=== PATIENT | male | born 1945 | race Caucasian/White ===

== ENCOUNTER 2017-11-01 08:56 | Emergency (ER) | payer OTHER ==
[~2017-11-01] VITALS: Ht 175.3 cm; Wt 109.6 kg
[~2017-11-01 08:56] MED LIST: ALLO300T2 PO; ASPI81TA82 PO; ATENPOW10 PO; LOSA25TA31 PO
[2017-11-01 08:59] VITALS: BP 220/107; PULSE 83; RESP 16; TEMP 97.5; O2SAT 94
[2017-11-01] MEDS ORDERED: AMLO2.5T PO ×2 (09:08)
[2017-11-01] MEDS ORDERED: ASPI81TA23 PO ×2 (09:08)
[2017-11-01] MEDS ORDERED: ALLO300T2 PO ×2 (09:08)
[2017-11-01] MEDS ORDERED: LOSA25TA PO ×2 (09:08)
[2017-11-01] MEDS ORDERED: PHENYLEPHRINE HCL 0.5% NASAL SPRAY 15 ML BTL NASAL ONE (09:15)
[2017-11-01 09:16] VITALS: BP 168/71
--- NOTE | 2017-11-01 09:16 | PD ---
HPI Chief Complaint: Nosebleed Time Seen by Provider: 09:02 Travel History International Travel<30 days: No Contact w/Intl Traveler<30days: No Traveled to known affect area: No History of Present Illness HPI 72-year-old male presents emergency department for evaluation of a nose bleed started this morning. Patient states that he was at home watching television when he began to feel nauseous and went to the bathroom and vomited. States that his nose began bleeding at the time of this vomiting. Actually had some blood in his vomitus. Says that his nose bled for about 20 minutes prior to being controlled on its own. Denies any bleeding currently. Patient says he did not take his medication this morning which includes a high blood pressure medication. He does not take blood thinners. He denies history of bloody nose. Denies trauma or nasal pain. PFSH Past Medical History Hx Anticoagulant Therapy: No Cancer: No Cardiovascular Problems: No Diabetes: No Diminished Hearing: No Gout: Yes Hepatitis: No Hiatal Hernia: No Hypertension: Yes Respiratory: No Thyroid Disease: No Tetanus Vaccination: > 5 Years Influenza Vaccination: No PNEUMOCCOCAL Vaccine (Year): 2 Past Surgical History Eye Surgery: Yes (LEFT EYE CATARACT SX) Pacemaker: No Other Surgery: Yes Social History Alcohol Use: Yes (daily) Tobacco Use: No Substance Use: No Allergies-Medications (Allergen,Severity, Reaction): Coded Allergies: No Known Allergies (Verified Adverse Reaction, Unknown, 11/01/17) Reported Meds & Prescriptions Reported Meds & Active Scripts Active Reported Amlodipine (Amlodipine Besylate) 2.5 Mg Tab Unknown Dose PO DAILY Losartan (Losartan Potassium) 25 Mg Tab Unknown Dose PO DAILY Aspirin EC (Aspirin) 81 Mg Tabdr 81 Mg PO DAILY Allopurinol 300 Mg Tab 300 Mg PO DAILY Review of Systems Except as stated in HPI: all other systems reviewed are Neg Physical Exam Narrative GENERAL: Well-nourished, well-developed patient. SKIN: Focused skin assessment warm/dry. HEAD: Normocephalic. EYES: No scleral icterus. No injection or drainage. Right nostril-possible source from the anterior aspect. No active bleeding noted. Posterior pharynx with scant blood but no active bleeding noted. NECK: Supple, trachea midline. No JVD or lymphadenopathy. CARDIOVASCULAR: Regular rate and rhythm without murmurs, gallops, or rubs. RESPIRATORY: Breath sounds equal bilaterally. No accessory muscle use. GASTROINTESTINAL: Abdomen soft, non-tender, nondistended. MUSCULOSKELETAL: No cyanosis, or edema. BACK: Nontender without obvious deformity. No CVA tenderness. Data Data Last Documented VS Vital Signs Date Time Temp Pulse Resp B/P (MAP) Pulse Ox O2 Delivery O2 Flow Rate FiO2 11/01/17 09:32 11/01/17 08:59 97.5 83 16 94 Orders Orders Phenylephrine 0.5% Bobby Spr (Neosynephrin (11/01/17 09:15) MDM Medical Decision Making Medical Screen Exam Complete: Yes Emergency Medical Condition: Yes Differential Diagnosis Epistaxis, hematemesis, hemoptysis Narrative Course 72-year-old male presents emergency department evaluation of epistaxis. Denies any headache, visual changes, blurred vision. Blood pressure was found to be very elevated although patient did not take his medication this morning because he was feeling nauseous. Patient was able to control this bleeding prior to arrival with pressure. In order to avoid recurrence, applied Noah-Synephrine nasal spray to gauze and applied to the right nare for 5-10 minutes. Note that his blood pressure upon arrival was significantly elevated. After sitting and resting, his blood pressure decreased appropriately. Advised that he should follow-up with his primary care physician today if possible for evaluation. Return to emergency department for worsening or persistent symptoms. Consider follow-up with an research program internship for evaluation. Diagnosis Primary Impression: Epistaxis Referrals: Primary Care Physician Additional Instructions: Follow-up with primary care physician regarding a bloody nose. Follow-up with primary care regarding her blood pressure. If your nasal bleeding begins again, hold pressure for 10 minutes. Avoid blowing your nose Disposition: 01 DISCHARGE HOME Condition: Stable Nicki Reno Nov 01, 2017 09:16
== END 2017-11-01 09:32 | disposition home or self-care (01) ==
LOC: PHEFT 08:56
DX: R04.0 Epistaxis (principal); I10 Essential (primary) hypertension
CPT/HCPCS: 99281

== ENCOUNTER 2017-11-03 01:10 | Inpatient (IN) | payer OTHER, MEDICARE ==
[~2017-11-03] VITALS: Ht 172.7 cm; Wt 107.2 kg
[2017-11-03] VITALS (15 sets, daily range): BP systolic 140–244; BP diastolic 75–119; PULSE 67–113; RESP 16–20; TEMP 96–98.3; O2SAT 93–98
[~2017-11-03 01:10] MED LIST changes: +AMLO2.5T PO; +ASPI81TA23 PO; +LOSA25TA PO
[2017-11-03] MEDS ORDERED: PHENYLEPHRINE HCL 0.5% NASAL SPRAY 15 ML BTL NASAL ONE (01:45)
--- NOTE | 2017-11-03 02:31 | PD ---
HPI Chief Complaint: Nosebleed Time Seen by Provider: 01:35 Travel History International Travel<30 days: No Contact w/Intl Traveler<30days: No Traveled to known affect area: No History of Present Illness HPI The patient is a 72-year-old male that had a nosebleed that began yesterday. Apparently, they sprayed it with Noah-Synephrine and a quick bleeding. His nose was not packed except for some small gauze amount. The patient states that intermittently bleeds large amounts of blood. He came in because of the nosebleed which is mostly out of the right side of his nose. He is on 81 mg aspirin daily but takes no other blood thinner. He does have a history of hypertension. He sees his primary care physician on Wednesday. PFSH Past Medical History Hx Anticoagulant Therapy: No Cancer: No Cardiovascular Problems: No Diabetes: No Diminished Hearing: No Gout: Yes Hepatitis: No Hiatal Hernia: No Hypertension: Yes Respiratory: No Thyroid Disease: No Influenza Vaccination: No PNEUMOCCOCAL Vaccine (Year): 2 Past Surgical History Eye Surgery: Yes (LEFT EYE CATARACT SX) Pacemaker: No Other Surgery: Yes Social History Alcohol Use: Yes (daily) Tobacco Use: No Substance Use: No Allergies-Medications (Allergen,Severity, Reaction): Coded Allergies: No Known Allergies (Verified Adverse Reaction, Unknown, 11/03/17) Reported Meds & Prescriptions Reported Meds & Active Scripts Active Reported Amlodipine (Amlodipine Besylate) 2.5 Mg Tab Unknown Dose PO DAILY Losartan (Losartan Potassium) 25 Mg Tab Unknown Dose PO DAILY Aspirin EC (Aspirin) 81 Mg Tabdr 81 Mg PO DAILY Allopurinol 300 Mg Tab 300 Mg PO DAILY Review of Systems Except as stated in HPI: all other systems reviewed are Neg Physical Exam Narrative GENERAL: Well-nourished, well-developed, alert and oriented patient in no apparent distress other than anxiety and his nosebleed. His vital signs initially showed blood pressure 244/119 but, after rest, the blood pressure is 163/98. SKIN: Focused skin assessment warm/dry. No skin rash is present. HEAD: Normocephalic. EYES: No scleral icterus. No injection or drainage. NECK: Supple, trachea midline. No JVD or lymphadenopathy. CARDIOVASCULAR: Regular rate and rhythm without murmurs, gallops, or rubs. RESPIRATORY: Breath sounds equal bilaterally. No accessory muscle use. GASTROINTESTINAL: Abdomen soft, non-tender, nondistended. MUSCULOSKELETAL: No cyanosis, or edema. BACK: Nontender without obvious deformity. No CVA tenderness. ENT: The patient has a small amount of blood coursing down the posterior pharyngeal wall. Most of the blood is in the right nares, only minimal blood is in the left nares. Data Data Last Documented VS Vital Signs Date Time Temp Pulse Resp B/P (MAP) Pulse Ox O2 Delivery O2 Flow Rate FiO2 11/03/17 02:43 84 20 185/95 (125) 96 Room Air 11/03/17 01:15 97.4 Orders Orders Phenylephrine 0.5% Bobby Spr (Neosynephrin (11/03/17 01:45) Hydralazine Inj (Apresoline Inj) (11/03/17 02:45) MDM Medical Decision Making Medical Screen Exam Complete: Yes Emergency Medical Condition: Yes Medical Record Reviewed: Yes Differential Diagnosis Anterior epistaxis, posterior epistaxis, coagulopathy, hypertension Narrative Course It is now 0300 and the patient has only a minimal amount of mucousy blood coming out anteriorly. The amount of blood is less than a drop an hour. There is no blood coursing posteriorly. Diagnosis Primary Impression: Anterior epistaxis Additional Instructions: As we discussed, follow-up with your primary care physician on Wednesday who will remove the balloon packing. If you have any problems, please return to the emergency department. Med/Other Pt SpecificInfo: Prescription(s) given Scripts Amoxicillin (Amoxicillin) 875 Mg Tab 875 MG PO BID for Infection, #14 TAB 0 Refills Prov: Lionel Galvan MD 11/03/17 Disposition: 01 DISCHARGE HOME Condition: Stable Lionel Galvan MD Nov 03, 2017 02:31
[2017-11-03] MEDS ORDERED: hydrALAZINE HCL 20 MG/ML VIAL IV PUSH ONE (02:45)
[2017-11-03] MEDS ORDERED: AMOX875T PO (03:02)
[2017-11-03] MEDS ORDERED: AMOXICILLIN 875 MG TAB PO ONE (03:15)
[2017-11-03 04:11] LABS: AUTOMATED NEUTROPHIL # 5.3 TH/MM3 (1.8-7.7); BASOPHIL # 0.1 TH/MM3 (0-0.2); BASOPHIL % 0.8 % (0.0-2.0); EOSINOPHIL # 0.3 TH/MM3 (0-0.4); EOSINOPHIL % 3.4 % (0.0-4.0); HEMATOCRIT 49.2 % (39.0-51.0); HEMOGLOBIN 17.1 GM/DL (13.0-17.0); LYMPH % 22.5 % (9.0-44.0); LYMPHOCYTE # 1.9 TH/MM3 (1.0-4.8); MEAN CELL VOLUME 92.1 FL (80.0-100.0); MEAN CORPUSCULAR HEMOGLOBIN 32.1 PG (27.0-34.0); MEAN CORPUSCULAR HGB CONC 34.8 % (32.0-36.0); MEAN PLATELET VOLUME 10.7 FL (7.0-11.0); MONO % 9.8 % (0.0-8.0); MONOCYTE # 0.8 TH/MM3 (0-0.9); NEUT % 63.5 % (16.0-70.0); PLATELET COUNT 182 TH/MM3 (150-450); RED BLOOD COUNT 5.34 MIL/MM3 (4.50-5.90); RED CELL DISTRIBUTION WIDTH 13.8 % (11.6-17.2); WHITE BLOOD COUNT 8.4 TH/MM3 (4.0-11.0)
[2017-11-03 04:34] LABS: BICARBONATE 26.4 MEQ/L (21.0-32.0)
[2017-11-03 04:37] LABS: INTERNATIONAL NORMALIZED RATIO 1.1 RATIO; PROTHROMBIN TIME - PATIENT 11.2 SEC (9.8-11.6)
[2017-11-03 04:38] LABS: CREATININE 1.1 MG/DL (0.60-1.30)
[2017-11-03] MEDS ORDERED: SODIUM CHLOR 0.9% 1000 ML INJ 1,000 ML IV SCH (04:51)
[2017-11-03] MEDS ORDERED: NALOXONE HCL 0.4 MG/ML AMP IV PUSH PRN (05:00)
[2017-11-03] MEDS ORDERED: SODIUM CHLORIDE 0.9% FLUSH 10 ML FLUSH IV FLUSH PRN (05:00)
[2017-11-03] MEDS ORDERED: LACTULOSE SYRUP 20 GM/30 ML CUP PO PRN (05:00)
[2017-11-03] MEDS ORDERED: SENNOSIDES 8.6 MG TAB PO PRN (05:00)
[2017-11-03] MEDS ORDERED: BISACODYL 10 MG SUPP RECTAL PRN (05:00)
[2017-11-03] MEDS ORDERED: ONDANSETRON HCL 4 MG/2 ML VIAL IVP PRN (05:00)
[2017-11-03] MEDS ORDERED: MAGNESIUM HYDROXIDE SUSP 30 ML CUP PO PRN (05:00)
[2017-11-03] MEDS: DOCUSATE SODIUM 50 MG/SENNA 8.6 MG TAB PO SCH ×2 (07:48→21:51)
[2017-11-03] MEDS: cloNIDine HCL 0.1 MG TAB PO PRN ×3 (07:48→20:19)
[2017-11-03] MEDS: ACETAMINOPHEN 325 MG TAB PO PRN ×2 (07:49→14:22)
[2017-11-03] MEDS: SODIUM CHLORIDE 0.9% FLUSH 10 ML FLUSH IV FLUSH SCH ×2 (09:00→21:52)
--- NOTE | 2017-11-03 09:54 | HHI.HP ---
HPI Service [facility] Primary Care Physician Alban Youssef MD Admission Diagnosis Anterior epistaxis Diagnoses: Chief Complaint: Epistaxis Travel History International Travel<30 Days: No Contact w/Intl Traveler <30 Da: No Traveled to Known Affected Are: No History of Present Illness This is a 72-year-old male patient with a known medical history of hypertension and gout who presented to the ED with continued epistaxis. Apparently patient presented to the ED yesterday was given Noah-Synephrine spray and a quick bleeding which had resolved the nosebleed, patient's right nare was also packed with some small gauze. Patient states he went home and the bleeding had subsided but then around 1230 this morning while laying in bed he noticed a postnasal drip and continued bleeding from his right nare. Patient does admit to taking aspirin 81 mg daily. He also does admit that his software engineer advisor is put him on vitamin D which he had started on Wednesday and took a total of 3 doses of vitamin E the past 3 days. Patient does have a history of hypertension , states it has been adequately controlled with his current medication regimen. He is due to see his PCP, Dr. Youssef on Wednesday for follow-up. Denies any recent illness including fever, chills, cough, abdominal pain, nausea, vomiting , diarrhea dysuria. Review of Systems Constitutional: DENIES: Fever, Chills Endocrine: DENIES: Heat/cold intolerance Eyes: DENIES: Blurred vision, Diplopia Ears, nose, mouth, throat: COMPLAINS OF: Epistaxis, DENIES: Oral lesions, Throat pain, Ear Pain, Running Nose, Sinus Pain Respiratory: DENIES: Cough Cardiovascular: DENIES: Chest pain, Palpitations, Dyspnea on Exertion, Lower Extremity Edema Gastrointestinal: DENIES: Abdominal pain, Black stools, Bloody stools, Constipation, Diarrhea, Nausea, Vomiting Musculoskeletal: DENIES: Joint pain Hematologic/lymphatic: DENIES: Bruising Psychiatric: DENIES: Anxiety Except as stated in HPI: all other systems reviewed are Neg Past Family Social History Past Medical History Hypertension Gout Past Surgical History Left eye cataract surgery Right shoulder repair Reported Medications Active Amoxicillin 875 Mg Tab 875 Mg PO BID Reported Amlodipine (Amlodipine Besylate) 2.5 Mg Tab Unknown Dose PO DAILY Losartan (Losartan Potassium) 25 Mg Tab Unknown Dose PO DAILY Aspirin EC (Aspirin) 81 Mg Tabdr 81 Mg PO DAILY Allopurinol 300 Mg Tab 300 Mg PO DAILY Allergies: Coded Allergies: No Known Allergies (Verified Adverse Reaction, Unknown, 11/03/17) Active Ordered Medications Current Medications Medications (Trade) Dose Ordered Sig/Chiki Route Start Time Stop Time Status Last Admin Sodium Chloride 1,000 ml @ 100 mls/hr Q10H IV 11/03/17 04:51 11/03/17 05:02 (NS Flush) 2 ml UNSCH PRN IV FLUSH 11/03/17 05:00 (NS Flush) 2 ml BID IV FLUSH 11/03/17 09:00 (Tylenol) 650 mg Q4H PRN PO 11/03/17 05:00 11/03/17 07:49 (Zofran Inj) 4 mg Q6H PRN IVP 11/03/17 05:00 (Narcan Inj) 0.4 mg UNSCH PRN IV PUSH 11/03/17 05:00 (Kimber-Colace) 1 tab BID PO 11/03/17 09:00 11/03/17 07:48 (Milk Of Magnesia Liq) 30 ml Q12H PRN PO 11/03/17 05:00 (Senokot) 17.2 mg Q12H PRN PO 11/03/17 05:00 (Dulcolax Supp) 10 mg DAILY PRN RECTAL 11/03/17 05:00 (Lactulose Liq) 30 ml DAILY PRN PO 11/03/17 05:00 (Catapres) 0.1 mg Q6H PRN PO 11/03/17 05:00 11/03/17 07:48 Family History Brother had a history of MS, in his 40s. Father has a history of RI in his 70s. Social History Patient denies any tobacco abuse. Does admit to 2 glasses of wine/beer daily. Denies illicit drug use. Physical Exam Vital Signs Vital Signs Date Time Temp Pulse Resp B/P (MAP) Pulse Ox O2 Delivery O2 Flow Rate FiO2 11/03/17 08:00 96.8 94 18 187/96 (126) 96 11/03/17 06:10 11/03/17 05:00 108 16 144/89 (107) 95 Room Air 11/03/17 04:29 108 16 156/75 (102) 94 Aerosol Mask 11/03/17 03:50 113 18 217/118 (151) 95 Room Air 11/03/17 03:36 99 16 164/85 (111) 94 Room Air 11/03/17 03:12 98 16 163/81 (108) 95 Room Air 11/03/17 03:02 100 16 170/95 (120) 95 Room Air 11/03/17 02:43 84 20 185/95 (125) 96 Room Air 11/03/17 02:11 95 16 163/98 (119) 94 Room Air 11/03/17 01:39 84 16 195/97 (129) 93 Room Air 11/03/17 01:15 97.4 91 18 244/119 (160) 95 Physical Exam GENERAL: Well-developed, well-nourished patient in [place]. SKIN: Warm and dry. No rash. HEAD: Normocephalic. Atraumatic. EYES: Pupils equal and round. No scleral icterus. No injection or drainage. ENT: Right nare bleeding with packing in place. NECK: Supple. Trachea midline. CARDIOVASCULAR: Regular rate and rhythm. S1, S2 noted. No murmur appreciated. RESPIRATORY: No accessory muscle use. Clear to auscultation. Breath sounds equal bilaterally. GASTROINTESTINAL: Abdomen soft, non-tender, nondistended. Normoactive bowel sounds x4. MUSCULOSKELETAL: No obvious deformities. Extremities without clubbing, cyanosis , or edema. NEUROLOGICAL: Awake and alert. No obvious cranial nerve deficits. Motor grossly within normal limits. 5/5 muscle strength in bilateral upper and lower extremities. Normal speech. PSYCHIATRIC: Appropriate mood and affect; insight and judgment normal. Laboratory Laboratory Tests Test 11/03/17 03:57 11/03/17 04:20 White Blood Count 8.4 Red Blood Count 5.34 Hemoglobin 17.1 Hematocrit 49.2 Mean Corpuscular Volume 92.1 Mean Corpuscular Hemoglobin 32.1 Mean Corpuscular Hemoglobin Concent 34.8 Red Cell Distribution Width 13.8 Platelet Count 182 Mean Platelet Volume 10.7 Neutrophils (%) (Auto) 63.5 Lymphocytes (%) (Auto) 22.5 Monocytes (%) (Auto) 9.8 Eosinophils (%) (Auto) 3.4 Basophils (%) (Auto) 0.8 Neutrophils # (Auto) 5.3 Lymphocytes # (Auto) 1.9 Monocytes # (Auto) 0.8 Eosinophils # (Auto) 0.3 Basophils # (Auto) 0.1 CBC Comment DIFF FINAL Differential Comment Prothrombin Time 11.2 Prothromb Time International Ratio 1.1 Activated Partial Thromboplast Time 25.4 Blood Urea Nitrogen 29 Creatinine 1.10 Random Glucose 153 Calcium Level 9.0 Sodium Level 136 Potassium Level 4.3 Chloride Level 103 Carbon Dioxide Level 26.4 Anion Gap 7 Estimat Glomerular Filtration Rate 66 Result Diagram: 11/03/17 0357 11/03/17 0420 Septic Shock Reassessment Septic shock perfusion: reassessment completed Caprini VTE Risk Assessment Caprini VTE Risk Assessment: Mod/High Risk (score >= 2) Caprini Risk Assessment Model Point Value = 1 Point Value = 2 Point Value = 3 Point Value = 5 Age 41-60 Minor surgery BMI > 25 kg/m2 Swollen legs Varicose veins or History of unexplained or recurrent spontaneous Oral contraceptives or hormone replacement Sepsis (< 1 month) Serious lung disease, including pneumonia (< 1 month) Abnormal pulmonary function Acute myocardial infarction Congestive heart failure (< 1 month) History of inflammatory bowel disease Medical patient at bed rest Age 61-74 Arthroscopic surgery Major open surgery (> 45 min) Laparoscopic surgery (> 45 min) Malignancy Confined to bed (> 72 hours) Immobilizing plaster cast Central venous access Age >= 75 History of VTE Family history of VTE Factor V Leiden Prothrombin [id number] Lupus anticoagulant Anticardiolipin antibodies Elevated serum homocysteine Heparin-induced thrombocytopenia Other congenital or acquired thrombophilia Stroke (< 1 month) Elective arthroplasty Hip, pelvis, or leg fracture Acute spinal cord injury (< 1 month) Prophylaxis Regimen Total Risk Factor Score Risk Level Prophylaxis Regimen 0-1 Low Early ambulation 2 Moderate Order ONE of the following: *Sequential Compression Device (SCD) *Heparin 5000 units SQ BID 3-4 Higher Order ONE of the following medications: *Heparin 5000 units SQ TID *Enoxaparin/Lovenox 40 mg SQ daily (WT < 150 kg, CrCl > 30 mL/min) *Enoxaparin/Lovenox 30 mg SQ daily (WT < 150 kg, CrCl > 10-29 mL/min) *Enoxaparin/Lovenox 30 mg SQ BID (WT < 150 kg, CrCl > 30 mL/min) AND/OR *Sequential Compression Device (SCD) 5 or more Highest Order ONE of the following medications: *Heparin 5000 units SQ TID (Preferred with Epidurals) *Enoxaparin/Lovenox 40 mg SQ daily (WT < 150 kg, CrCl > 30 mL/min) *Enoxaparin/Lovenox 30 mg SQ daily (WT < 150 kg, CrCl > 10-29 mL/min) *Enoxaparin/Lovenox 30 mg SQ BID (WT < 150 kg, CrCl > 30 mL/min) AND *Sequential Compression Device (SCD) Assessment and Plan Problem List: (1) Anterior epistaxis ICD Code: R04.0 - Epistaxis Status: Acute Assessment and Plan This is a 72-year-old male patient with a known medical history of hypertension and gout who presented to the ED with continued epistaxis. Anterior epistaxis - Patient does take aspirin 81 mg PO daily. Also admits to taking Vitamin E x 3 days. - Was given Neosynephrine spray in ED. - Balloon packing and Merocel sponges placed in right nare. ENT consulted, Dr. Epps aware patient and will see him today. Will probably continue packing for 3 days. Appreciate input recommendations. - Continue Amoxicillin. - Supportive care. Hypertension, chronic: Continue tight blood pressure control, epistaxis may be secondary to uncontrolled hypertension. Clonidine available PRN. Monitor BP trends. DVT Prophylaxis: SCDs. Carri Almazan Nov 03, 2017 09:54
[2017-11-03] MEDS ORDERED: amLODIPine BESYLATE 5 MG TAB PO SCH (10:15)
[2017-11-03] MEDS ORDERED: LOSARTAN 25 MG TAB PO SCH (10:15)
[2017-11-03 10:23] LABS: HEMATOCRIT 47.6 % (39.0-51.0); HEMOGLOBIN 16.2 GM/DL (13.0-17.0)
[2017-11-03] MEDS ORDERED: PILL SPLITTER OTHER PRN (10:30)
--- NOTE | 2017-11-03 14:09 | PD.CONS ---
History of Present Illness Service ENT Consult Requested By ED Reason for Consult Right epistaxis Primary Care Physician Alban Youssef MD Diagnoses: History of Present Illness 72 year old male, hypertensive had right nosebleed Wednesday. Initially was seen with resolution but returned with more serious bleed and significant increase in blood pressure. Required double right Merocel pack for control. His baby aspirin has been stopped. He is still hypertensive. There is no active bleed. Review of Systems Ears, nose, mouth, throat: COMPLAINS OF: Nasal discharge, Epistaxis, DENIES: Oral lesions, Hoarseness, Sinus Pain Past Family Social History Allergies: Coded Allergies: No Known Allergies (Verified Adverse Reaction, Unknown, 11/03/17) Physical Exam Vital Signs Vital Signs Date Time Temp Pulse Resp B/P (MAP) Pulse Ox O2 Delivery O2 Flow Rate FiO2 11/03/17 12:00 97.4 82 18 194/92 (126) 96 11/03/17 08:49 20 11/03/17 08:00 96.8 94 18 187/96 (126) 96 11/03/17 06:10 11/03/17 05:00 108 16 144/89 (107) 95 Room Air 11/03/17 04:29 108 16 156/75 (102) 94 Aerosol Mask 11/03/17 03:50 113 18 217/118 (151) 95 Room Air 11/03/17 03:36 99 16 164/85 (111) 94 Room Air 11/03/17 03:12 98 16 163/81 (108) 95 Room Air 11/03/17 03:02 100 16 170/95 (120) 95 Room Air 11/03/17 02:43 84 20 185/95 (125) 96 Room Air 11/03/17 02:11 95 16 163/98 (119) 94 Room Air 11/03/17 01:39 84 16 195/97 (129) 93 Room Air 11/03/17 01:15 97.4 91 18 244/119 (160) 95 Physical Exam GENERAL: This is a well-nourished, well-developed patient, in no apparent distress. SKIN: No rashes, ecchymoses or lesions. Cool and dry. HEAD: Atraumatic. Normocephalic. No temporal or scalp tenderness. EYES: Pupils equal round and reactive. Extraocular motions intact. No scleral icterus. No injection or drainage. ENT: Nose without active bleeding, right nasal pack in place. Throat without erythema, tonsillar hypertrophy or exudate. Uvula midline. Airway patent. NECK: Trachea midline. No JVD or lymphadenopathy. Supple, nontender, no meningeal signs. NEUROLOGICAL: Awake and alert. Normal speech. Laboratory Laboratory Tests Test 11/03/17 03:57 11/03/17 04:20 11/03/17 10:00 White Blood Count 8.4 Red Blood Count 5.34 Hemoglobin 17.1 16.2 Hematocrit 49.2 47.6 Mean Corpuscular Volume 92.1 Mean Corpuscular Hemoglobin 32.1 Mean Corpuscular Hemoglobin Concent 34.8 Red Cell Distribution Width 13.8 Platelet Count 182 Mean Platelet Volume 10.7 Neutrophils (%) (Auto) 63.5 Lymphocytes (%) (Auto) 22.5 Monocytes (%) (Auto) 9.8 Eosinophils (%) (Auto) 3.4 Basophils (%) (Auto) 0.8 Neutrophils # (Auto) 5.3 Lymphocytes # (Auto) 1.9 Monocytes # (Auto) 0.8 Eosinophils # (Auto) 0.3 Basophils # (Auto) 0.1 CBC Comment DIFF FINAL Differential Comment Prothrombin Time 11.2 Prothromb Time International Ratio 1.1 Activated Partial Thromboplast Time 25.4 Blood Urea Nitrogen 29 Creatinine 1.10 Random Glucose 153 Calcium Level 9.0 Sodium Level 136 Potassium Level 4.3 Chloride Level 103 Carbon Dioxide Level 26.4 Anion Gap 7 Estimat Glomerular Filtration Rate 66 Result Diagram: 11/03/17 1000 11/03/17 0420 Assessment and Plan Assessment and Plan 72 year old male hypertensive, epistaxis. Need to control hypertension. SBP still over 190. Will need right pack until Wednesday. Can D/C here or if discharged can be seen in our [place] office. Would hold baby aspirin for now. OK to feed per ENT. Needs to be on antibiotics. Merrick Epsp MD Nov 03, 2017 14:09
[2017-11-03] MEDS: ENALAPRILAT 1.25 MG/ML VIAL IV PUSH PRN (16:23)
[2017-11-03] MEDS ORDERED: ATEN100T PO ×2 (18:58)
[2017-11-03] MEDS: AMOXICILLIN 875 MG TAB PO SCH (21:51)
[2017-11-04 04:00] VITALS: BP 138/67; PULSE 71; RESP 20; TEMP 96.3; O2SAT 95
[2017-11-04 05:56] LABS: AUTOMATED NEUTROPHIL # 5.7 TH/MM3 (1.8-7.7); BASOPHIL # 0.1 TH/MM3 (0-0.2); BASOPHIL % 0.9 % (0.0-2.0); EOSINOPHIL # 0.2 TH/MM3 (0-0.4); EOSINOPHIL % 2.8 % (0.0-4.0); HEMATOCRIT 44.4 % (39.0-51.0); HEMOGLOBIN 14.5 GM/DL (13.0-17.0); LYMPH % 14.4 % (9.0-44.0); LYMPHOCYTE # 1.1 TH/MM3 (1.0-4.8); MEAN CELL VOLUME 91.9 FL (80.0-100.0); MEAN CORPUSCULAR HEMOGLOBIN 29.9 PG (27.0-34.0); MEAN CORPUSCULAR HGB CONC 32.6 % (32.0-36.0); MONO % 7.2 % (0.0-8.0); MONOCYTE # 0.5 TH/MM3 (0-0.9); NEUT % 74.7 % (16.0-70.0); PLATELET COUNT 163 TH/MM3 (150-450); RED BLOOD COUNT 4.84 MIL/MM3 (4.50-5.90); RED CELL DISTRIBUTION WIDTH 13.2 % (11.6-17.2); WHITE BLOOD COUNT 7.6 TH/MM3 (4.0-11.0)
[2017-11-04 06:08] LABS: BICARBONATE 29.7 MEQ/L (21.0-32.0); CALCIUM 8.8 MG/DL (8.5-10.1)
[2017-11-04 08:00] VITALS: BP 145/77; PULSE 91; RESP 18; TEMP 98; O2SAT 96
[2017-11-04] MEDS: DOCUSATE SODIUM 50 MG/SENNA 8.6 MG TAB PO SCH ×2 (08:02→20:14)
[2017-11-04] MEDS: SODIUM CHLORIDE 0.9% FLUSH 10 ML FLUSH IV FLUSH SCH ×2 (08:03→20:18)
[2017-11-04] MEDS: AMOXICILLIN 875 MG TAB PO SCH ×2 (08:12→20:18)
[2017-11-04] MEDS ORDERED: LOSARTAN 25 MG TAB PO SCH (09:00)
[2017-11-04] MEDS ORDERED: amLODIPine BESYLATE 5 MG TAB PO SCH (09:00)
[2017-11-04] MEDS ORDERED: ALLOPURINOL 300 MG TAB PO SCH (09:00)
--- NOTE | 2017-11-04 09:36 | HHI.PR ---
Subjective Remarks Follow up epistaxis. Patient seen and examined, sitting on side of bed comfortably in no apparent distress. Packing present in right nare, minimal bleeding. Some reports of bleeding from left nare overnight. BP more controlled , home medications updated. Patient denies any pain, chest pain or nausea, vomiting. VSS. Afebrile. Patient states he feels more comfortable staying overnight to monitor bleeding, packing will be removed tomorrow. Objective Vitals Vital Signs Date Time Temp Pulse Resp B/P (MAP) Pulse Ox O2 Delivery O2 Flow Rate FiO2 11/04/17 04:00 96.3 71 20 138/67 (90) 95 Manual Cuff/Auscultation 11/03/17 23:11 98.3 67 18 140/82 (101) 95 11/03/17 20:00 96.0 87 20 160/100 (120) 98 Automatic Cuff 11/03/17 16:00 97.7 69 18 143/86 (105) 96 11/03/17 15:22 20 11/03/17 12:00 97.4 82 18 194/92 (126) 96 I/O 11/03/17 11/03/17 11/03/17 11/04/17 11/04/17 11/04/17 07:00 15:00 23:00 07:00 15:00 23:00 Intake Total 1320 ml Balance 1320 ml Intake Oral 1320 ml # Voids 4 # Bowel Movements 0 Result Diagram: 11/04/17 0535 11/04/17 0535 Objective Remarks GENERAL: Well-developed, well-nourished patient in [facility]. SKIN: Warm and dry. No rash. HEAD: Normocephalic. Atraumatic. EYES: Pupils equal and round. No scleral icterus. No injection or drainage. ENT: Right nare bleeding with packing in place. NECK: Supple. Trachea midline. CARDIOVASCULAR: Regular rate and rhythm. S1, S2 noted. No murmur appreciated. RESPIRATORY: No accessory muscle use. Clear to auscultation. Breath sounds equal bilaterally. GASTROINTESTINAL: Abdomen soft, non-tender, nondistended. Normoactive bowel sounds x4. MUSCULOSKELETAL: No obvious deformities. Extremities without clubbing, cyanosis , or edema. NEUROLOGICAL: Awake and alert. No obvious cranial nerve deficits. Motor grossly within normal limits. 5/5 muscle strength in bilateral upper and lower extremities. Normal speech. PSYCHIATRIC: Appropriate mood and affect; insight and judgment normal. A/P Problem List: (1) Anterior epistaxis ICD Code: R04.0 - Epistaxis Status: Acute Assessment and Plan This is a 72-year-old male patient with a known medical history of hypertension and gout who presented to the ED with continued epistaxis. Anterior epistaxis - Patient does take aspirin 81 mg PO daily. Also admits to taking Vitamin E x 3 days. Placed on hold. - Was given Neosynephrine spray in ED. - Balloon packing and Merocel sponges placed in right nare. ENT consulted, Dr. Epps aware with current recommendations. Remove packing tomorrow. - Continue Amoxicillin. - Supportive care. Hypertension, chronic: Continue tight blood pressure control, epistaxis may be secondary to uncontrolled hypertension. Updated home med rec. BP more controlled. DVT Prophylaxis: SCDs. Carri Almazan Nov 04, 2017 09:36
[2017-11-04] MEDS ORDERED: ATENOLOL 50 MG TAB PO ONE (10:00)
[2017-11-04] MEDS ORDERED: ALLOPURINOL 100 MG TAB PO ONE (10:00)
[2017-11-04] MEDS ORDERED: LOSARTAN 50 MG TAB PO ONE (10:00)
[2017-11-04 12:00] VITALS: BP 145/85; PULSE 74; RESP 18; TEMP 97.3; O2SAT 95
[2017-11-04 16:00] VITALS: BP 187/90; PULSE 91; RESP 18; TEMP 98; O2SAT 95
[2017-11-04 20:00] VITALS: BP_SYST 142; BP_SYST 213; BP_DIAS 120; BP_DIAS 86; PULSE 88; RESP 22; TEMP 98; O2SAT 98
[2017-11-04] MEDS: ENALAPRILAT 1.25 MG/ML VIAL IV PUSH PRN (20:20)
[2017-11-05] VITALS (8 sets, daily range): BP systolic 128–180; BP diastolic 64–98; PULSE 70–80; RESP 18–22; TEMP 95.8–97.4; O2SAT 96–99
[2017-11-05] MEDS: ENALAPRILAT 1.25 MG/ML VIAL IV PUSH PRN (03:32)
[2017-11-05] MEDS ORDERED: ATENOLOL 50 MG TAB PO SCH (09:00)
[2017-11-05] MEDS: SODIUM CHLORIDE 0.9% FLUSH 10 ML FLUSH IV FLUSH SCH ×2 (09:00→20:23)
[2017-11-05] MEDS: LOSARTAN 50 MG TAB PO SCH (09:30)
[2017-11-05] MEDS: DOCUSATE SODIUM 50 MG/SENNA 8.6 MG TAB PO SCH ×2 (09:30→20:23)
[2017-11-05] MEDS: ALLOPURINOL 100 MG TAB PO SCH (09:30)
[2017-11-05] MEDS: AMOXICILLIN 875 MG TAB PO SCH ×2 (09:38→20:23)
[2017-11-05] MEDS ORDERED: amLODIPine BESYLATE 5 MG TAB PO ONE (11:00)
[2017-11-05] MEDS ORDERED: hydrALAZINE HCL 10 MG TAB PO ONE (11:00)
--- NOTE | 2017-11-05 13:07 | HHI.PR ---
Subjective Remarks Follow-up epistaxis and uncontrolled hypertension. Patient seen and examined, lying in bed. States that he had an episode of uncontrolled hypertension overnight, IV Vasotec as needed was given with minimal resolution of blood pressure. Blood pressure continues to be in the 160s systolic. Have started him on amlodipine and hydralazine. Change atenolol to carvedilol. We will continue to monitor. Patient did have some left nare bleeding overnight as well. Spoke to ENT Dr. Epps, will continue to follow and keep packing in until blood pressure more controlled. Objective Vitals Vital Signs Date Time Temp Pulse Resp B/P (MAP) Pulse Ox O2 Delivery O2 Flow Rate FiO2 11/05/17 12:00 96.8 72 20 165/97 (119) 99 11/05/17 08:00 96.9 80 20 160/92 (114) 96 11/05/17 04:20 158/98 (118) 11/05/17 03:30 180/82 (114) 11/05/17 00:00 96.4 70 22 169/81 (110) 98 11/04/17 20:00 98.0 88 22 142/86 (104) 98 11/04/17 20:00 213/120 (151) 11/04/17 16:00 98.0 91 18 187/90 (122) 95 I/O 11/04/17 11/04/17 11/04/17 11/05/17 11/05/17 11/05/17 07:00 15:00 23:00 07:00 15:00 23:00 Intake Total 1320 ml 1020 ml Balance 1320 ml 1020 ml Intake Oral 1320 ml 1020 ml # Voids 4 3 # Bowel Movements 0 0 Result Diagram: 11/04/17 0535 11/04/17 0535 Objective Remarks GENERAL: Well-developed, well-nourished patient in [place]. SKIN: Warm and dry. No rash. HEAD: Normocephalic. Atraumatic. EYES: Pupils equal and round. No scleral icterus. No injection or drainage. ENT: Right nare bleeding with packing in place. NECK: Supple. Trachea midline. CARDIOVASCULAR: Regular rate and rhythm. S1, S2 noted. No murmur appreciated. RESPIRATORY: No accessory muscle use. Clear to auscultation. Breath sounds equal bilaterally. GASTROINTESTINAL: Abdomen soft, non-tender, nondistended. Normoactive bowel sounds x4. MUSCULOSKELETAL: No obvious deformities. Extremities without clubbing, cyanosis , or edema. NEUROLOGICAL: Awake and alert. No obvious cranial nerve deficits. Motor grossly within normal limits. 5/5 muscle strength in bilateral upper and lower extremities. Normal speech. PSYCHIATRIC: Appropriate mood and affect; insight and judgment normal. A/P Problem List: (1) Anterior epistaxis ICD Code: R04.0 - Epistaxis Status: Acute Assessment and Plan This is a 72-year-old male patient with a known medical history of hypertension and gout who presented to the ED with continued epistaxis. Anterior epistaxis - Patient does take aspirin 81 mg PO daily. Also admits to taking Vitamin E x 3 days. Placed on hold. - Was given Neosynephrine spray in ED. - Balloon packing and Merocel sponges placed in right nare. ENT consulted, Dr. Epps aware with current recommendations. Seen patient this morning, patient still with uncontrolled hypertension. Will keep packing in until more controlled. Continue to follow.. - Continue Amoxicillin. - Supportive care. Tolerated hypertension History of hypertension - Continue tight blood pressure control, epistaxis suspect secondary to uncontrolled hypertension. - Patient on hydralazine 12.5 mg twice daily, added Norvasc 5 mg daily, change home atenolol to carvedilol - this may produce better results. Continue home losartan. Vasotec IV as needed per parameters. DVT Prophylaxis: SCDs. Carri Almazan Nov 05, 2017 13:07
--- NOTE | 2017-11-05 13:13 | HHI.PR ---
Subjective Remarks Had one episode of bleeding last night. Stopped spontaneously. No active bleed currently. Packing in just over 2 days. Objective Vital Signs Date Time Temp Pulse Resp B/P (MAP) Pulse Ox O2 Delivery O2 Flow Rate FiO2 11/05/17 12:00 96.8 72 20 165/97 (119) 99 11/05/17 08:00 96.9 80 20 160/92 (114) 96 11/05/17 04:20 158/98 (118) 11/05/17 03:30 180/82 (114) 11/05/17 00:00 96.4 70 22 169/81 (110) 98 11/04/17 20:00 98.0 88 22 142/86 (104) 98 11/04/17 20:00 213/120 (151) 11/04/17 16:00 98.0 91 18 187/90 (122) 95 I/O 11/04/17 11/04/17 11/04/17 11/05/17 11/05/17 11/05/17 07:00 15:00 23:00 07:00 15:00 23:00 Intake Total 1320 ml 1020 ml Balance 1320 ml 1020 ml Intake Oral 1320 ml 1020 ml # Voids 4 3 # Bowel Movements 0 0 Result Diagram: 11/04/17 0535 11/04/17 0535 Assessment and Plan Assessment and Plan 72 year old male hypertensive, epistaxis. On amoxil. had a secondary bleed last night. HTN still not controlled. Will need pacing likely 3 to 4 days. Will re- evaluate tomorrow. Merrick Epps MD Nov 05, 2017 13:13
[2017-11-05] MEDS: CARVEDILOL 12.5 MG TAB PO SCH ×2 (13:32→20:23)
[2017-11-05] MEDS: hydrALAZINE HCL 25 MG TAB PO SCH ×2 (13:32→22:31)
[2017-11-05 14:20] LABS: HEMATOCRIT 44.8 % (39.0-51.0); HEMOGLOBIN 14.4 GM/DL (13.0-17.0)
[2017-11-06] VITALS: BP 145/80; PULSE 77; RESP 20; TEMP 96.1; O2SAT 97
[2017-11-06] MEDS: hydrALAZINE HCL 25 MG TAB PO SCH (06:01)
[2017-11-06 08:00] VITALS: BP 153/84; PULSE 74; RESP 18; TEMP 97.7; O2SAT 93
[2017-11-06] MEDS: ALLOPURINOL 100 MG TAB PO SCH (08:03)
[2017-11-06] MEDS: SODIUM CHLORIDE 0.9% FLUSH 10 ML FLUSH IV FLUSH SCH (08:03)
[2017-11-06] MEDS: CARVEDILOL 12.5 MG TAB PO SCH (08:04)
[2017-11-06] MEDS: LOSARTAN 50 MG TAB PO SCH (08:04)
[2017-11-06] MEDS: AMOXICILLIN 875 MG TAB PO SCH (08:04)
[2017-11-06] MEDS: DOCUSATE SODIUM 50 MG/SENNA 8.6 MG TAB PO SCH (08:05)
--- NOTE | 2017-11-06 08:51 | HHI.PR ---
Subjective Remarks No further bleeding. Blood pressure much better controlled. Objective Nasal packs removed with no active bleed. Vital Signs Date Time Temp Pulse Resp B/P (MAP) Pulse Ox O2 Delivery O2 Flow Rate FiO2 11/06/17 00:00 96.1 77 20 145/80 (101) 97 11/05/17 20:00 95.8 78 18 137/83 (101) 96 11/05/17 16:00 97.4 76 20 147/80 (102) 98 11/05/17 14:45 128/64 (85) 11/05/17 12:00 96.8 72 20 165/97 (119) 99 I/O 11/05/17 11/05/17 11/05/17 11/06/17 11/06/17 11/06/17 07:00 15:00 23:00 07:00 15:00 23:00 Intake Total 550 ml 0 ml Balance 550 ml 0 ml Intake Oral 550 ml 0 ml # Voids 8 2 # Bowel Movements 0 Result Diagram: 11/05/17 1350 11/04/17 0535 Assessment and Plan Assessment and Plan 72 year old male hypertensive, epistaxis. Packing D/C'd, no bleed. Blood pressure better. OK to send home. Will see Wednesday in PO office. Merrick Epps MD Nov 06, 2017 08:51
[2017-11-06] MEDS ORDERED: amLODIPine BESYLATE 5 MG TAB PO SCH (09:00)
[2017-11-06] MEDS ORDERED: AMOX875T PO (09:09)
[2017-11-06] MEDS ORDERED: HYDR-3799 PO (09:09)
[2017-11-06] MEDS ORDERED: CARV12.5 PO (09:09)
--- NOTE | 2017-11-06 09:09 | HHI.DS ---
Discharge Summary Admission Date Nov 05, 2017 at 13:13 Discharge Date: Nov 06, 2017 Admitting Diagnosis Anterior epistaxis (1) Anterior epistaxis ICD Code: R04.0 - Epistaxis Status: Acute Procedures Please see below Brief History - From Admission This is a 72-year-old male patient with a known medical history of hypertension and gout who presented to the ED with continued epistaxis. Apparently patient presented to the ED yesterday was given Noah-Synephrine spray and a quick bleeding which had resolved the nosebleed, patient's right nare was also packed with some small gauze. Patient states he went home and the bleeding had subsided but then around 1230 this morning while laying in bed he noticed a postnasal drip and continued bleeding from his right nare. Patient does admit to taking aspirin 81 mg daily. He also does admit that his congregational care pastor is put him on vitamin D which he had started on Wednesday and took a total of 3 doses of vitamin E the past 3 days. Patient does have a history of hypertension , states it has been adequately controlled with his current medication regimen. He is due to see his PCP, Dr. Youssef on Wednesday for follow-up. Denies any recent illness including fever, chills, cough, abdominal pain, nausea, vomiting , diarrhea dysuria. CBC/BMP: 11/05/17 1350 11/04/17 0535 Significant Findings Laboratory Tests Test 11/03/17 10:00 11/04/17 05:35 11/05/17 13:50 Neutrophils (%) (Auto) 74.7 % (16.0-70.0) Blood Urea Nitrogen 27 MG/DL (7-18) Random Glucose 113 MG/DL (74-106) Estimat Glomerular Filtration Rate 73 ML/MIN (>89) PE at Discharge GENERAL: Well-developed, well-nourished patient in [facility]. SKIN: Warm and dry. No rash. HEAD: Normocephalic. Atraumatic. EYES: Pupils equal and round. No scleral icterus. No injection or drainage. ENT: Right nare bleeding with packing in place. NECK: Supple. Trachea midline. CARDIOVASCULAR: Regular rate and rhythm. S1, S2 noted. No murmur appreciated. RESPIRATORY: No accessory muscle use. Clear to auscultation. Breath sounds equal bilaterally. GASTROINTESTINAL: Abdomen soft, non-tender, nondistended. Normoactive bowel sounds x4. MUSCULOSKELETAL: No obvious deformities. Extremities without clubbing, cyanosis , or edema. NEUROLOGICAL: Awake and alert. No obvious cranial nerve deficits. Motor grossly within normal limits. 5/5 muscle strength in bilateral upper and lower extremities. Normal speech. PSYCHIATRIC: Appropriate mood and affect; insight and judgment normal. Pt update on day of discharge Follow up epistaxis. Patient seen and examined, sitting on side of bed comfortably. Dr. Epps in to see patient today, packing removed from right nare. Bleeding controlled. BP more controlled on current regimen. Will DC today , follow up ENT and PCP. VSS. Afebrile. Ambulating well. Eating well. No further complaints. Hospital Course This is a 72-year-old male patient with a known medical history of hypertension and gout who presented to the ED with continued epistaxis. Patient with right nare epistaxis. Patient does take aspirin 81 mg PO daily. Also admits to taking Vitamin E x 3 days. Placed on hold. Was given Neosynephrine spray in ED. Balloon packing and Merocel sponges placed in right nare. ENT consulted, Dr. Epps saw patient during hospitalization. Amoxicillin started. Packing removed day of discharge. Patient with accelerated hypertension which was status suspected reason for epistaxis, started on hydralazine, changed atenolol to carvedilol, continued home losartan. Vasotec IV was used as needed during hospitalization. Several episodes of elevated hypertension during hospitalization. Upon discharge blood pressure was stabilized and patient encouraged to follow-up with ENT and PCP. Return to ED if symptoms worsen. Pt Condition on Discharge: Stable Discharge Disposition: Discharge Home Discharge Time: > 30 minutes Discharge Instructions DIET: Follow Instructions for: As Tolerated, No Restrictions Speech Therapy-Diet Recommends: Regular Activities you can perform: Regular-No Restrictions Follow up Referrals: Appointment for Follow Up Ear Nose Throat - 2-[address] EPPS PCP Follow-up - 1 Week PCP Follow-up New Medications: Blood Pressure Kit/Arm Cuff (Blood Pressure Kit/Arm Cuff) 1 Mis Mis EA .XX DIRECTED for Blood Pressure Management, #1 0 Refills Carvedilol (Coreg) 12.5 Mg Tab 12.5 MG PO Q12HR for hypertension for 90 Days, #180 TAB Hydralazine HCl (Hydralazine HCl) 25 Mg Tablet 25 MG PO Q8HR for hypertension for 90 Days, #270 TAB Continued Medications: Allopurinol (Allopurinol) 300 Mg Tab 100 MG PO DAILY for Gout, #30 TAB 0 Refills Amoxicillin (Amoxicillin) 875 Mg Tab 875 MG PO BID for Infection for 11 Days, #22 TAB 0 Refills (This prescription has been renewed) Aspirin DR (Aspirin EC) 81 Mg Tabdr 81 MG PO DAILY, TAB 0 Refills Losartan (Losartan) 25 Mg Tab 100 PO DAILY for Blood Pressure Management, #15 TAB 0 Refills Discontinued Medications: Amlodipine (Amlodipine) 2.5 Mg Tab Unknown Dose PO DAILY for Blood Pressure Management, #30 TAB 0 Refills Atenolol (Atenolol) 100 Mg Tab 100 MG PO DAILY for Blood Pressure Management, #30 TAB 0 Refills Carri Almazan Nov 06, 2017 09:09
--- NOTE | 2017-11-06 09:10 | HHI.DCPOC ---
Discharge Care Plan Diagnosis: (1) Anterior epistaxis Goals to Promote Your Health * To prevent worsening of your condition and complications * To maintain your health at the optimal level Directions to Meet Your Goals Take your medications as prescribed Follow your dietary instruction Follow activity as directed Keep your appointments as scheduled Take your immunizations and boosters as scheduled If your symptoms worsen call your PCP, if no PCP go to Urgent Care Center or Emergency Room Smoking is Dangerous to Your Health. Avoid second hand smoke Call the 24-hour hour crisis hotline for domestic abuse at Carri Almazan Nov 06, 2017 09:10
[2017-11-06] MEDS ORDERED: BLOOD PRESSURE1 M20 (09:12)
== END 2017-11-06 11:00 | disposition home or self-care (01) | DRG 151 ==
LOC: PHED 01:10 → PHEDA 05:01 → PH3A 06:03 → OBSVTOIN 11-05 13:13
PROVIDERS: ADMIT Hospitalist; ATTEND Hospitalist
DX: R04.0 Epistaxis (principal); I10 Essential (primary) hypertension; M10.9 Gout, unspecified; Z79.82 Long term (current) use of aspirin; Z79.899 Other long term (current) drug therapy
CPT/HCPCS: 80048; 85014; 85018; 85025; 85610; 85730; 96376; G0378; J0360; J7030

== ENCOUNTER 2017-11-13 18:39 | Observation (INO) | payer MEDICARE, OTHER ==
[~2017-11-13] VITALS: Ht 175.3 cm; Wt 105.3 kg
[2017-11-13] VITALS (7 sets, daily range): BP systolic 149–250; BP diastolic 77–117; PULSE 82–85; RESP 16–18; TEMP 97.7; O2SAT 95–98
[~2017-11-13 18:39] MED LIST changes: -AMLO2.5T PO; +AMOX875T PO; -ASPI81TA82 PO; -ATENPOW10 PO; +BLOOD PRESSURE1 M20; +CARV12.5 PO; +HYDR-3799 PO; -LOSA25TA31 PO
[2017-11-13] MEDS ORDERED: SODIUM CHLORIDE 0.9% FLUSH 10 ML FLUSH IVF PRN (19:00)
[2017-11-13 19:38] LABS: AUTOMATED NEUTROPHIL # 5.7 TH/MM3 (1.8-7.7); BASOPHIL # 0.3 TH/MM3 (0-0.2); BASOPHIL % 3.8 % (0.0-2.0); EOSINOPHIL # 0.3 TH/MM3 (0-0.4); EOSINOPHIL % 3.5 % (0.0-4.0); HEMATOCRIT 44.4 % (39.0-51.0); HEMOGLOBIN 15.1 GM/DL (13.0-17.0); LYMPH % 18.1 % (9.0-44.0); LYMPHOCYTE # 1.6 TH/MM3 (1.0-4.8); MEAN CELL VOLUME 92.6 FL (80.0-100.0); MEAN CORPUSCULAR HEMOGLOBIN 31.6 PG (27.0-34.0); MEAN CORPUSCULAR HGB CONC 34.1 % (32.0-36.0); MEAN PLATELET VOLUME 10.2 FL (7.0-11.0); MONO % 8.4 % (0.0-8.0); MONOCYTE # 0.7 TH/MM3 (0-0.9); NEUT % 66.2 % (16.0-70.0); PLATELET COUNT 246 TH/MM3 (150-450); RED BLOOD COUNT 4.79 MIL/MM3 (4.50-5.90); RED CELL DISTRIBUTION WIDTH 13.2 % (11.6-17.2); WHITE BLOOD COUNT 8.6 TH/MM3 (4.0-11.0)
--- NOTE | 2017-11-13 19:40 | PD ---
HPI Chief Complaint: Hypertension Time Seen by Provider: 18:53 Travel History International Travel<30 days: No Contact w/Intl Traveler<30days: No Traveled to known affect area: No History of Present Illness HPI Patient is a 72-year-old male with history of hypertension and gout, presents the emergency room for evaluation of hypertension. Patient reports that he was recently admitted to the hospital on November 05, 2017 as his blood pressure was so high, he had persistent anterior epistasis. Patient was discharged on carvedilol 12.5 mg twice daily, hydralazine 25 mg every 8 hours, losartan 100 mg daily, amlodipine as well as atenolol were discontinued. Patient reports that he has been taking his blood pressure with his blood pressure cuff at home , reports that it is persistently high. Reports that tonight, his systolic blood pressures were over 190. Patient denies any headache or dizziness, denies any chest pain or shortness of breath, patient concerned that he is unable to control his blood pressure. Patient did see his primary care doctor yesterday, he was told to increase his dose of hydralazine to 50 mg every 8 hours. Patient reports that this is not working. Patient denies any headache, denies any vision changes, denies any dizziness, denies any nausea or vomiting this time. PFSH Past Medical History Hx Anticoagulant Therapy: No Arthritis: Yes Anxiety: No Depression: No Cancer: No Cardiovascular Problems: Yes Diabetes: No Diminished Hearing: No Endocrine: No Gout: Yes Genitourinary: No Hepatitis: No Hiatal Hernia: No Hypertension: Yes Immune Disorder: No Musculoskeletal: Yes Neurologic: No Psychiatric: No Reproductive: No Respiratory: Yes Thyroid Disease: No PNEUMOCCOCAL Vaccine (Year): 2 ?: Not Past Surgical History Eye Surgery: Yes (CATARACT SX) Pacemaker: No Other Surgery: Yes Social History Alcohol Use: Yes (daily) Tobacco Use: No Substance Use: No Allergies-Medications (Allergen,Severity, Reaction): Coded Allergies: No Known Allergies (Verified Adverse Reaction, Unknown, 11/03/17) Reported Meds & Prescriptions Reported Meds & Active Scripts Active Blood Pressure Kit/Arm Cuff 1 Mis Mis Ea .XX DIRECTED Coreg (Carvedilol) 12.5 Mg Tab 12.5 Mg PO Q12HR 90 Days Hydralazine HCl 25 Mg Tablet 25 Mg PO Q8HR 90 Days Amoxicillin 875 Mg Tab 875 Mg PO BID 11 Days Reported Losartan (Losartan Potassium) 25 Mg Tab 100 PO DAILY Aspirin EC (Aspirin) 81 Mg Tabdr 81 Mg PO DAILY Allopurinol 300 Mg Tab 100 Mg PO DAILY Review of Systems General / Constitutional: No: Fever Eyes: No: Visual changes HENT: No: Headaches Cardiovascular: No: Chest Pain or Discomfort Respiratory: No: Shortness of Breath Gastrointestinal: No: Abdominal Pain Genitourinary: No: Dysuria Musculoskeletal: No: Pain Skin: No Rash Neurologic: No: Weakness Psychiatric: No: Depression Endocrine: No: Polydipsia Hematologic/Lymphatic: No: Easy Bruising Physical Exam Narrative GENERAL: NAD SKIN: Focused skin assessment warm/dry. HEAD: Atraumatic. Normocephalic. EYES: Pupils equal and round. No scleral icterus. No injection or drainage. ENT: No nasal bleeding or discharge. Mucous membranes pink and moist. NECK: Trachea midline. No JVD. CARDIOVASCULAR: Regular rate and rhythm. No murmur appreciated. RESPIRATORY: No accessory muscle use. Clear to auscultation. Breath sounds equal bilaterally. GASTROINTESTINAL: Abdomen soft, non-tender, nondistended. Hepatic and splenic margins not palpable. MUSCULOSKELETAL: No obvious deformities. No clubbing. No cyanosis. No edema. NEUROLOGICAL: Awake and alert. No obvious cranial nerve deficits. Motor grossly within normal limits. Normal speech. PSYCHIATRIC: Appropriate mood and affect; insight and judgment normal. Data Data Last Documented VS Vital Signs Date Time Temp Pulse Resp B/P (MAP) Pulse Ox O2 Delivery O2 Flow Rate FiO2 11/13/17 20:13 83 18 163/85 (111) 95 Room Air 11/13/17 18:46 97.7 Orders Orders Electrocardiogram (11/13/17 18:53) Basic Metabolic Panel (Bmp) (11/13/17 18:53) Complete Blood Count With Diff (11/13/17 18:53) Magnesium (Mg) (11/13/17 18:53) Prothrombin Time / Inr (Pt) (11/13/17 18:53) Act Partial Throm Time (Ptt) (11/13/17 18:53) Chest, Single Ap (11/13/17 18:53) Ecg Monitoring (11/13/17 18:53) Iv Access Insert/Monitor (11/13/17 18:53) Oximetry (11/13/17 18:53) Sodium Chloride 0.9% Flush (Ns Flush) (11/13/17 19:00) Hydralazine Inj (Apresoline Inj) (11/13/17 19:45) Labs Laboratory Tests Test 11/13/17 19:20 White Blood Count 8.6 TH/MM3 Red Blood Count 4.79 MIL/MM3 Hemoglobin 15.1 GM/DL Hematocrit 44.4 % Mean Corpuscular Volume 92.6 FL Mean Corpuscular Hemoglobin 31.6 PG Mean Corpuscular Hemoglobin Concent 34.1 % Red Cell Distribution Width 13.2 % Platelet Count 246 TH/MM3 Mean Platelet Volume 10.2 FL Neutrophils (%) (Auto) 66.2 % Lymphocytes (%) (Auto) 18.1 % Monocytes (%) (Auto) 8.4 % Eosinophils (%) (Auto) 3.5 % Basophils (%) (Auto) 3.8 % Neutrophils # (Auto) 5.7 TH/MM3 Lymphocytes # (Auto) 1.6 TH/MM3 Monocytes # (Auto) 0.7 TH/MM3 Eosinophils # (Auto) 0.3 TH/MM3 Basophils # (Auto) 0.3 TH/MM3 CBC Comment DIFF FINAL Differential Comment Prothrombin Time 10.3 SEC Prothromb Time International Ratio 1.0 RATIO Activated Partial Thromboplast Time 25.3 SEC Blood Urea Nitrogen 14 MG/DL Creatinine 1.10 MG/DL Random Glucose 108 MG/DL Calcium Level 9.2 MG/DL Magnesium Level 1.8 MG/DL Sodium Level 136 MEQ/L Potassium Level 4.2 MEQ/L Chloride Level 101 MEQ/L Carbon Dioxide Level 29.8 MEQ/L Anion Gap 5 MEQ/L Estimat Glomerular Filtration Rate 66 ML/MIN MDM Medical Decision Making Medical Screen Exam Complete: Yes Emergency Medical Condition: Yes Medical Record Reviewed: Yes Interpretation(s) EKG at 2001: NSR at 82bpm, no acute st or t wave changes Vital Signs Date Time Temp Pulse Resp B/P (MAP) Pulse Ox O2 Delivery O2 Flow Rate FiO2 11/13/17 18:46 97.7 85 18 250/115 (160) 97 CBC & BMP Diagram 11/13/17 19:20 Calcium Level 9.2, Magnesium Level 1.8 Differential Diagnosis Hypertensive emergency Narrative Course During the course of the patients emergency department visit, the patients history, examination, and differential diagnosis were reviewed with the patient. The patient was placed on a engine monitor with oximetry and frequent blood pressure monitoring. The patient had an IV access obtained and blood work sent for analysis. The patient was initially provided 10 mg of IV hydralazine as his blood pressure was 250/115 upon arrival to the ER The patients laboratory studies were reviewed and remarkable for Laboratory Tests Test 11/13/17 19:20 White Blood Count 8.6 TH/MM3 (4.0-11.0) Red Blood Count 4.79 MIL/MM3 (4.50-5.90) Hemoglobin 15.1 GM/DL (13.0-17.0) Hematocrit 44.4 % (39.0-51.0) Mean Corpuscular Volume 92.6 FL (80.0-100.0) Mean Corpuscular Hemoglobin 31.6 PG (27.0-34.0) Mean Corpuscular Hemoglobin Concent 34.1 % (32.0-36.0) Red Cell Distribution Width 13.2 % (11.6-17.2) Platelet Count 246 TH/MM3 (150-450) Mean Platelet Volume 10.2 FL (7.0-11.0) Neutrophils (%) (Auto) 66.2 % (16.0-70.0) Lymphocytes (%) (Auto) 18.1 % (9.0-44.0) Monocytes (%) (Auto) 8.4 % (0.0-8.0) Eosinophils (%) (Auto) 3.5 % (0.0-4.0) Basophils (%) (Auto) 3.8 % (0.0-2.0) Neutrophils # (Auto) 5.7 TH/MM3 (1.8-7.7) Lymphocytes # (Auto) 1.6 TH/MM3 (1.0-4.8) Monocytes # (Auto) 0.7 TH/MM3 (0-0.9) Eosinophils # (Auto) 0.3 TH/MM3 (0-0.4) Basophils # (Auto) 0.3 TH/MM3 (0-0.2) CBC Comment DIFF FINAL Differential Comment Prothrombin Time 10.3 SEC (9.8-11.6) Prothromb Time International Ratio 1.0 RATIO Activated Partial Thromboplast Time 25.3 SEC (24.3-30.1) Blood Urea Nitrogen 14 MG/DL (7-18) Creatinine 1.10 MG/DL (0.60-1.30) Random Glucose 108 MG/DL (74-106) Calcium Level 9.2 MG/DL (8.5-10.1) Magnesium Level 1.8 MG/DL (1.5-2.5) Sodium Level 136 MEQ/L (136-145) Potassium Level 4.2 MEQ/L (3.5-5.1) Chloride Level 101 MEQ/L (98-107) Carbon Dioxide Level 29.8 MEQ/L (21.0-32.0) Anion Gap 5 MEQ/L (5-15) Estimat Glomerular Filtration Rate 66 ML/MIN (>89) Radiology studies were reviewed and remarkable for Last Impressions Chest X-Ray 11/13/17 1853 Signed Impressions: Service Date/Time: Monday, November 13, 2017 19:09 - CONCLUSION: 1. Bibasilar atelectasis. Bhaskar Quezada MD repeat bp: 186/97 currently bp is 163/85 patient will require observation to hospital at this time for accelerated hypertension. case reviewed with Dr. Marmolejo who accepts pt to service Diagnosis Primary Impression: Accelerated hypertension Admitting Information Admitting Physician Requests: Observation Antonina Muir DO Nov 13, 2017 19:40
[2017-11-13] MEDS ORDERED: hydrALAZINE HCL 20 MG/ML VIAL IV PUSH ONE (19:45)
--- NOTE | 2017-11-13 19:45 | RADRPT ---
EXAM DATE/TIME: 11/13/2017 19:09 [facility] COMPARISON: No previous studies available for comparison. INDICATIONS : Short of breath. MEDICAL HISTORY : Hypertension. SURGICAL HISTORY : None. ENCOUNTER: Initial ACUITY: 1 day PAIN SCORE: 0/10 LOCATION: Bilateral chest FINDINGS: A single view of the chest demonstrates bibasilar atelectasis. Heart normal in size. The cardiomedia stinal contours are unremarkable. Old rib fractures. CONCLUSION: 1. Bibasilar atelectasis. Bhaskar Quezada MD on November 13, 2017 at 19:42 Board Certified Radiologist. This report was verified electronically.
[2017-11-13 19:46] LABS: CALCIUM 9.2 MG/DL (8.5-10.1)
[2017-11-13 19:47] LABS: BICARBONATE 29.8 MEQ/L (21.0-32.0); MAGNESIUM 1.8 MG/DL (1.5-2.5)
[2017-11-13 19:50] LABS: CREATININE 1.1 MG/DL (0.60-1.30); PROTHROMBIN TIME - PATIENT 10.3 SEC (9.8-11.6)
[2017-11-13] MEDS ORDERED: HYDR-3799 PO (20:21)
[2017-11-13] MEDS ORDERED: SODIUM CHLORIDE 0.9% FLUSH 10 ML FLUSH IV FLUSH PRN (20:30)
[2017-11-13] MEDS ORDERED: SENNOSIDES 8.6 MG TAB PO PRN (20:30)
[2017-11-13] MEDS ORDERED: ACETAMINOPHEN/HYDROcodone 325 MG/10 MG TAB PO PRN (20:30)
[2017-11-13] MEDS ORDERED: LACTULOSE SYRUP 20 GM/30 ML CUP PO PRN (20:30)
[2017-11-13] MEDS ORDERED: ACETAMINOPHEN 325 MG TAB PO PRN (20:30)
[2017-11-13] MEDS ORDERED: BISACODYL 10 MG SUPP RECTAL PRN (20:30)
[2017-11-13] MEDS ORDERED: ACETAMINOPHEN/HYDROcodone 325 MG/5 MG TAB PO PRN (20:30)
[2017-11-13] MEDS ORDERED: ONDANSETRON HCL 4 MG/2 ML VIAL IVP PRN (20:30)
[2017-11-13] MEDS ORDERED: MAGNESIUM HYDROXIDE SUSP 30 ML CUP PO PRN (20:30)
[2017-11-13] MEDS: SODIUM CHLORIDE 0.9% FLUSH 10 ML FLUSH IV FLUSH SCH (21:00)
[2017-11-13] MEDS: DOCUSATE SODIUM 50 MG/SENNA 8.6 MG TAB PO SCH (21:15)
[2017-11-13] MEDS: METOPROLOL TARTRATE 50 MG TAB PO SCH (21:15)
[2017-11-13] MEDS: hydrALAZINE HCL 50 MG TAB PO SCH (22:32)
[2017-11-14] VITALS (7 sets, daily range): BP systolic 142–198; BP diastolic 74–116; PULSE 75–90; RESP 17–22; TEMP 96.5–97.6; O2SAT 95–98
--- NOTE | 2017-11-14 00:02 | EKG ---
Date Performed: 11/13/2017 Time Performed: 20:02:57 PTAGE: 72 years EKG: Sinus rhythm NORMAL ECG PREVIOUS TRACING : 01/06/2011 12.46 Since the previous tracing, no significant change noted DOCTOR: Hadley Bolivar Interpretating Date/Time 11/14/2017 00:01:22
[2017-11-14] MEDS ORDERED: cloNIDine HCL 0.1 MG TAB PO SCH (05:15)
[2017-11-14] MEDS: hydrALAZINE HCL 50 MG TAB PO SCH ×3 (05:23→19:58)
[2017-11-14 07:03] LABS: AUTOMATED NEUTROPHIL # 6.1 TH/MM3 (1.8-7.7); BASOPHIL # 0.1 TH/MM3 (0-0.2); BASOPHIL % 1.1 % (0.0-2.0); EOSINOPHIL # 0.2 TH/MM3 (0-0.4); EOSINOPHIL % 2.4 % (0.0-4.0); HEMATOCRIT 43.1 % (39.0-51.0); HEMOGLOBIN 14.9 GM/DL (13.0-17.0); LYMPH % 13.8 % (9.0-44.0); LYMPHOCYTE # 1.1 TH/MM3 (1.0-4.8); MEAN CELL VOLUME 91.9 FL (80.0-100.0); MEAN CORPUSCULAR HEMOGLOBIN 31.8 PG (27.0-34.0); MEAN CORPUSCULAR HGB CONC 34.6 % (32.0-36.0); MEAN PLATELET VOLUME 10.4 FL (7.0-11.0); MONOCYTE # 0.6 TH/MM3 (0-0.9); NEUT % 74.7 % (16.0-70.0); PLATELET COUNT 225 TH/MM3 (150-450); RED BLOOD COUNT 4.69 MIL/MM3 (4.50-5.90); RED CELL DISTRIBUTION WIDTH 13.6 % (11.6-17.2); WHITE BLOOD COUNT 8.1 TH/MM3 (4.0-11.0)
[2017-11-14 07:08] LABS: CHLORIDE 102 MEQ/L (98-107); SODIUM (NA) 137 MEQ/L (136-145)
[2017-11-14 07:15] LABS: CALCIUM 9.2 MG/DL (8.5-10.1)
[2017-11-14 07:16] LABS: ALBUMIN 3.1 GM/DL (3.4-5.0); BICARBONATE 29.9 MEQ/L (21.0-32.0); BLOOD UREA NITROGEN 12 MG/DL (7-18); GLUCOSE,RANDOM 131 MG/DL (74-106)
[2017-11-14 07:19] LABS: ALT (GPT) 76 U/L (12-78); AST (GOT) 44 U/L (15-37); CREATININE 0.94 MG/DL (0.60-1.30); GLOMERULAR FILTRATION RATE 79 ML/MIN (>89)
[2017-11-14 07:20] LABS: TOTAL BILIRUBIN ADULT 0.9 MG/DL (0.2-1.0); TOTAL PROTEIN 7.8 GM/DL (6.4-8.2)
[2017-11-14 07:24] LABS: ALKALINE PHOSPHATASE 51 U/L (45-117)
[2017-11-14] MEDS: DOCUSATE SODIUM 50 MG/SENNA 8.6 MG TAB PO SCH ×2 (08:05→19:58)
[2017-11-14] MEDS: LOSARTAN 50 MG TAB PO SCH (08:06)
[2017-11-14] MEDS: NIFEdipine 60 MG SUSTAINED RELEASE TAB PO SCH (08:06)
[2017-11-14] MEDS: METOPROLOL TARTRATE 50 MG TAB PO SCH ×2 (08:08→19:58)
[2017-11-14] MEDS: SODIUM CHLORIDE 0.9% FLUSH 10 ML FLUSH IV FLUSH SCH ×2 (08:08→19:59)
[2017-11-14] MEDS ORDERED: IOHEXOL 350 MG/ML 10 ML VIAL (for RAD DIAG) IVCONTRAST ONE (09:04)
[2017-11-14 09:41] LABS: BILIRUBIN, URINE NEG (NEG); BLOOD, URINE NEG (NEG); GLUCOSE,URINE NEG (NEG); KETONE, URINE NEG (NEG); NITRITE,URINE NEG (NEG); PH, URINE 6.5 (5.0-8.5); URINE COLOR YELLOW (YELLW/STRAW); URINE LEUKOCYTE ESTERASE NEG (NEG)
--- NOTE | 2017-11-14 09:41 | HHI.HP ---
HPI Service [facility] ([place], [place])ists Primary Care Physician Alban Youssef MD Admission Diagnosis Accelerated Hypertension Diagnoses: (1) Hypertensive urgency Diagnosis: Principal Chief Complaint: Elevated blood pressure Travel History International Travel<30 Days: No Contact w/Intl Traveler <30 Da: No Traveled to Known Affected Are: No History of Present Illness This is a 72-year-old male with known history of hypertension, gouty arthritis who presented to the hospital because of elevated blood pressure. Patient was just recently moved to the hospital for accelerated hypertension, epistaxis and had medication adjustment from 11/03/17 until 11/05/17. Patient was doing well and monitoring blood pressure on a regular basis. I did review patient's blood pressure record and indicated that his blood pressure readings were anywhere from 120-160 on a daily basis. Patient is to follow-up with his primary medical doctor and they did increase his Apresoline to 50 mg 3 times daily. Patient was doing well until yesterday when he checked his blood pressure and at 5 PM, systolic pressure is 190 and then rechecked it again is 205 because of that he came to the emergency department for evaluation. Patient denies any headache, blurred vision, nausea, vomiting, chest pain, abdominal pain, denied any recurrent epistaxis. When the patient came to emergency department blood pressure was 250/115. Patient was given Apresoline IV in the emergency department with improvement of his blood pressure down to 149/77. ER physician recommended the patient be observed in the hospital for continued management of his blood pressure. This morning patient blood pressure did go back up to 198/116. Patient was given clonidine p.o. with improvement of the blood pressure. Given the patient having significant hypertensive urgency with labile blood pressure patient will require further evaluation and management to try to evaluate is patient has any underlying condition that would cause his apparent uncontrolled hypertension. Review of Systems Except as stated in HPI: all other systems reviewed are Neg Past Family Social History Past Medical History Hypertension Gouty arthritis Past Surgical History Left eye cataract surgery Right shoulder repair Reported Medications Reported Meds & Active Scripts Active Blood Pressure Kit/Arm Cuff 1 Mis Mis Ea .XX DIRECTED Coreg (Carvedilol) 12.5 Mg Tab 12.5 Mg PO Q12HR 90 Days Reported Hydralazine HCl 25 Mg Tablet 50 Mg PO TID Losartan (Losartan Potassium) 25 Mg Tab 100 PO DAILY Allopurinol 300 Mg Tab 100 Mg PO DAILY Allergies: Coded Allergies: No Known Allergies (Verified Adverse Reaction, Unknown, 11/03/17) Family History Family history was reviewed and significant for father of myocardial infarction, heart disease. Mother with multiple sclerosis Social History Patient states that he quit smoking 12 years ago, prior to that he smoked three- quarter pack of cigarettes a day since he was 19 years old. Patient denies any alcohol or illicit drug Physical Exam Vital Signs Vital Signs Date Time Temp Pulse Resp B/P (MAP) Pulse Ox O2 Delivery O2 Flow Rate FiO2 11/14/17 08:09 96.7 80 20 164/98 (120) 95 11/14/17 04:30 96.5 90 18 198/116 (143) 98 11/14/17 00:00 96.6 81 18 148/88 (108) 98 11/13/17 22:35 82 11/13/17 22:05 75 18 149/77 (101) 97 11/13/17 20:13 83 18 163/85 (111) 95 Room Air 11/13/17 19:45 83 16 186/97 (126) 97 Room Air 11/13/17 19:20 95 Room Air 11/13/17 19:04 82 18 98 Room Air 11/13/17 19:04 82 18 187/117 (140) 98 Room Air 11/13/17 18:46 97.7 85 18 250/115 (160) 97 Physical Exam GENERAL: Well-developed, central obesity, in no acute distress. alert and orientated HEENT: Head is normocephalic without any lesions or masses noted. Facial features are symmetric. Eyes: Pupils equal round reactive to light. Extraocular muscles are intact. Conjunctivae were clear. Oropharyngeal: Pharynx without any erythema edema. Tongue is midline without deviation. Buccal mucosa is moist without any masses or lesions NECK: Supple without any masses. Trachea midline no deviation. No JVD, no bruits are appreciated CARDIAC: Regular rhythm, regular rate. S1/S2 are heard. No murmurs gallops or rubs. LUNGS: Clear to auscultation bilaterally. No wheeze, rhonchi or rales. No use of accessory muscles on inspiration or expiration. ABDOMEN: Soft, nontender. Nondistended. Bowel sounds heard in all 4 quadrants. No organomegaly or masses. Negative rebound, negative guarding EXTREMITIES: No edema, pulses are equal bilaterally. No cyanosis or clubbing NEUROLOGY: Mood and affect appear appropriate. Cranial nerves II through XII grossly intact. Muscle strength 5/5 in upper and lower extremities bilaterally. Deep tendon reflexes are 2+ in upper and lower extremities bilaterally. Laboratory Laboratory Tests Test 11/13/17 19:20 11/14/17 06:33 White Blood Count 8.6 8.1 Red Blood Count 4.79 4.69 Hemoglobin 15.1 14.9 Hematocrit 44.4 43.1 Mean Corpuscular Volume 92.6 91.9 Mean Corpuscular Hemoglobin 31.6 31.8 Mean Corpuscular Hemoglobin Concent 34.1 34.6 Red Cell Distribution Width 13.2 13.6 Platelet Count 246 225 Mean Platelet Volume 10.2 10.4 Neutrophils (%) (Auto) 66.2 74.7 Lymphocytes (%) (Auto) 18.1 13.8 Monocytes (%) (Auto) 8.4 8.0 Eosinophils (%) (Auto) 3.5 2.4 Basophils (%) (Auto) 3.8 1.1 Neutrophils # (Auto) 5.7 6.1 Lymphocytes # (Auto) 1.6 1.1 Monocytes # (Auto) 0.7 0.6 Eosinophils # (Auto) 0.3 0.2 Basophils # (Auto) 0.3 0.1 CBC Comment DIFF FINAL DIFF FINAL Differential Comment Prothrombin Time 10.3 Prothromb Time International Ratio 1.0 Activated Partial Thromboplast Time 25.3 Blood Urea Nitrogen 14 12 Creatinine 1.10 0.94 Random Glucose 108 131 Calcium Level 9.2 9.2 Magnesium Level 1.8 Sodium Level 136 137 Potassium Level 4.2 4.1 Chloride Level 101 102 Carbon Dioxide Level 29.8 29.9 Anion Gap 5 5 Estimat Glomerular Filtration Rate 66 79 Total Protein 7.8 Albumin 3.1 Alkaline Phosphatase 51 Aspartate Amino Transf (AST/SGOT) 44 Alanine Aminotransferase (ALT/SGPT) 76 Total Bilirubin 0.9 Thyroid Stimulating Hormone 3rd Gen 3.190 Result Diagram: 11/14/17 0633 11/14/17 0633 Imaging Last Impressions Chest X-Ray 11/13/17 1853 Signed Impressions: Service Date/Time: Monday, November 13, 2017 19:09 - CONCLUSION: 1. Bibasilar atelectasis. MD Maranda Dobbs VTE Risk Assessment Maranda VTE Risk Assessment: Mod/High Risk (score >= 2) Carmelorini Risk Assessment Model Point Value = 1 Point Value = 2 Point Value = 3 Point Value = 5 Age 41-60 Minor surgery BMI > 25 kg/m2 Swollen legs Varicose veins or History of unexplained or recurrent spontaneous Oral contraceptives or hormone replacement Sepsis (< 1 month) Serious lung disease, including pneumonia (< 1 month) Abnormal pulmonary function Acute myocardial infarction Congestive heart failure (< 1 month) History of inflammatory bowel disease Medical patient at bed rest Age 61-74 Arthroscopic surgery Major open surgery (> 45 min) Laparoscopic surgery (> 45 min) Malignancy Confined to bed (> 72 hours) Immobilizing plaster cast Central venous access Age >= 75 History of VTE Family history of VTE Factor V Leiden Prothrombin [id number] Lupus anticoagulant Anticardiolipin antibodies Elevated serum homocysteine Heparin-induced thrombocytopenia Other congenital or acquired thrombophilia Stroke (< 1 month) Elective arthroplasty Hip, pelvis, or leg fracture Acute spinal cord injury (< 1 month) Prophylaxis Regimen Total Risk Factor Score Risk Level Prophylaxis Regimen 0-1 Low Early ambulation 2 Moderate Order ONE of the following: *Sequential Compression Device (SCD) *Heparin 5000 units SQ BID 3-4 Higher Order ONE of the following medications: *Heparin 5000 units SQ TID *Enoxaparin/Lovenox 40 mg SQ daily (WT < 150 kg, CrCl > 30 mL/min) *Enoxaparin/Lovenox 30 mg SQ daily (WT < 150 kg, CrCl > 10-29 mL/min) *Enoxaparin/Lovenox 30 mg SQ BID (WT < 150 kg, CrCl > 30 mL/min) AND/OR *Sequential Compression Device (SCD) 5 or more Highest Order ONE of the following medications: *Heparin 5000 units SQ TID (Preferred with Epidurals) *Enoxaparin/Lovenox 40 mg SQ daily (WT < 150 kg, CrCl > 30 mL/min) *Enoxaparin/Lovenox 30 mg SQ daily (WT < 150 kg, CrCl > 10-29 mL/min) *Enoxaparin/Lovenox 30 mg SQ BID (WT < 150 kg, CrCl > 30 mL/min) AND *Sequential Compression Device (SCD) Assessment and Plan Assessment and Plan Hypertensive urgency -Patient presented with blood pressure 250/115 -Blood pressure was improved after Apresoline IV in the emergency department -Blood pressure medication were continued to include Lopressor 25 mg twice daily Apresoline 50 mg every 8 hours Losartan 100 mg daily Start Procardia XL 60 mg daily -Patient will require further evaluation since patient continuing to have life- threatening hypertension CTA of the abdomen indicates severe left renal artery stenosis at the origin Additional labs to include lipid panel, uric acid, TSH were unremarkable, renin, 24-hour urine catecholamine and metanephrines are still pending -Discussed with nephrology, cardiology, interventional radiology. It was concluded that the patient may benefit from stenting of the renal arteries. Dr. Wren is placing the patient on the schedule for tomorrow morning in order to have stenting performed. Do not have the necessary equipment in [place] to perform procedure. Will transfer to [facility] to have procedure done tomorrow morning DVT prevention -Sequential compression devices Dano Galvan Nov 14, 2017 09:41
[2017-11-14 09:52] LABS: RBC, URINE 0-3 /hpf (0-3); SQUAMOUS EPITHELIAL CELL URINE 0-5 /hpf (0-5)
--- NOTE | 2017-11-14 10:06 | RADRPT ---
EXAM DATE/TIME: 11/14/2017 08:44 [facility] COMPARISON: No previous studies available for comparison. INDICATIONS : Accelerated hypertension. IV CONTRAST: 95 cc Omnipaque 350 (iohexol) IV ORAL CONTRAST: No oral contrast ingested. RADIATION DOSE: 26.51 CTDIvol (mGy) ; Patient body habitus MEDICAL HISTORY : Hypertension. SURGICAL HISTORY : Right shoulder. ENCOUNTER: Initial ACUITY: 1 day PAIN SCALE: 0/10 LOCATION: Paraspinal abdomen TECHNIQUE: Volumetric scanning was performed using a multi-row detector CT scanner. The data was post processed with a variety of visualization algorithms including full volume maximum intensity projection, multi -planar sliding thin slab reformation, curved planar reformation, and surface rendering techniques. Using automated exposure control and adjustment of the mA and/or kV according to patient size, radiat ion dose was kept as low as reasonably achievable to obtain optimal diagnostic quality images. DICOM format image data is available electronically for review and comparison. FINDINGS: Bilateral renal cysts are noted the largest on the right at the upper pole measuring 7.3 cm. Liver, g allbladder, spleen, pancreas, bilateral adrenal glands are normal in appearance. There is diverticulo sis of sigmoid and descending colon without evidence of diverticulitis. Appendix is normal. The prost ate is enlarged measuring 6.8 x 4.6 cm in transverse and AP dimension. Urinary bladder demonstrates m ild wall thickening greatest anteriorly however it is not well-distended. ABDOMINAL AORTA: There is no aneurysm. There is scattered atherosclerotic calcifications and soft plaque deposition se en. There is moderate to severe stenosis at the origin of the left main renal artery, with mild posts tenotic dilatation, as well as moderate stenosis of the right renal artery origin. The proximal super ior mesenteric artery is patent and normal in diameter. There is an accessory right renal artery karl ing off the aorta adjacent to the main renal artery. There is moderate atherosclerosis at the origin of the celiac artery secondary to calcific and soft plaque deposition. This is not hemodynamically si gnificant. BIFURCATION: Normal. RIGHT PELVIS: The right common iliac, internal iliac and external iliac vessels are patent without luminal irregula rity. LEFT PELVIS: The left common iliac, internal iliac and external iliac vessels are patent and without luminal irreg ularity. CONCLUSION: Atherosclerosis with severe stenosis at the origin of the left renal artery. Renal cysts. Diverticulosis. Soto Luevano MD on November 14, 2017 at 9:58 Board Certified Radiologist. This report was verified electronically.
[2017-11-14 11:28] LABS: CHOLESTEROL/ HDL RATIO 2.78 RATIO; HDL CHOLESTEROL 58.6 MG/DL (40.0-60.0)
[2017-11-15] VITALS (11 sets, daily range): BP systolic 98–162; BP diastolic 53–83; PULSE 76–91; RESP 17–20; TEMP 97.2–97.8; O2SAT 94–97
[2017-11-15] MEDS ORDERED: POVIDONE IODINE 5% (ANTISEPSIS KIT) 4 APPLICATIONS EACH NARE PRN (03:00)
[2017-11-15] MEDS ORDERED: CHLORHEXIDINE GLUCONATE 2 % 1 PACK (2 CLOTHS) TOPICAL PRN (03:00)
[2017-11-15] MEDS ORDERED: LACTATED RINGER'S 1000 ML IV PRN (03:00)
[2017-11-15] MEDS: hydrALAZINE HCL 50 MG TAB PO SCH ×3 (05:00→20:14)
[2017-11-15 08:00] LABS: INTERNATIONAL NORMALIZED RATIO 1.1 RATIO; PROTHROMBIN TIME - PATIENT 10.8 SEC (9.8-11.6)
[2017-11-15 08:08] LABS: AUTOMATED NEUTROPHIL # 5.8 TH/MM3 (1.8-7.7); BASOPHIL # 0.1 TH/MM3 (0-0.2); BASOPHIL % 1.1 % (0.0-2.0); EOSINOPHIL # 0.3 TH/MM3 (0-0.4); EOSINOPHIL % 3.3 % (0.0-4.0); HEMATOCRIT 43.1 % (39.0-51.0); HEMOGLOBIN 14.6 GM/DL (13.0-17.0); LYMPH % 14.3 % (9.0-44.0); LYMPHOCYTE # 1.2 TH/MM3 (1.0-4.8); MEAN CORPUSCULAR HEMOGLOBIN 31.3 PG (27.0-34.0); MEAN PLATELET VOLUME 9.8 FL (7.0-11.0); MONO % 9.2 % (0.0-8.0); MONOCYTE # 0.7 TH/MM3 (0-0.9); NEUT % 72.1 % (16.0-70.0); PLATELET COUNT 202 TH/MM3 (150-450); RED BLOOD COUNT 4.68 MIL/MM3 (4.50-5.90); RED CELL DISTRIBUTION WIDTH 13.5 % (11.6-17.2); WHITE BLOOD COUNT 8.1 TH/MM3 (4.0-11.0)
[2017-11-15] MEDS: DOCUSATE SODIUM 50 MG/SENNA 8.6 MG TAB PO SCH (09:00)
[2017-11-15] MEDS: NIFEdipine 60 MG SUSTAINED RELEASE TAB PO SCH (09:03)
[2017-11-15] MEDS: SODIUM CHLORIDE 0.9% FLUSH 10 ML FLUSH IV FLUSH SCH ×2 (09:04→20:15)
[2017-11-15] MEDS: METOPROLOL TARTRATE 50 MG TAB PO SCH ×2 (09:04→20:15)
[2017-11-15] MEDS: LOSARTAN 50 MG TAB PO SCH (09:04)
--- NOTE | 2017-11-15 10:19 | HHI.PR ---
Subjective Remarks Follow-up hypertensive urgency/renal artery stenosis November 15, 2017-patient seen and examined, currently normotensive and patient denies any chest pain, shortness of breath with dizziness. Also denies any headaches or visual disturbances. N.p.o. pending renal artery stent placement Objective Vitals Vital Signs Date Time Temp Pulse Resp B/P (MAP) Pulse Ox O2 Delivery O2 Flow Rate FiO2 11/15/17 08:00 97.5 91 17 126/78 (94) 95 11/15/17 04:00 97.2 81 20 98/53 (68) 94 11/15/17 00:00 97.8 84 20 130/71 (90) 95 11/14/17 20:00 97.6 80 22 142/77 (98) 95 11/14/17 16:00 97.3 89 17 155/74 (101) 96 11/14/17 12:57 96.5 79 20 164/102 (122) 95 11/14/17 10:45 75 I/O 11/14/17 11/14/17 11/14/17 11/15/17 11/15/17 11/15/17 07:00 15:00 23:00 07:00 15:00 23:00 Intake Total 120 ml 0 ml Output Total 450 ml 500 ml Balance 120 ml -450 ml -500 ml Intake Oral 120 ml 0 ml Output Urine Total 450 ml 500 ml # Bowel Movements 0 Result Diagram: 11/15/17 0653 11/14/17 0633 Imaging Last Impressions Abdomen/Pelvis CT 11/14/17 0000 Signed Impressions: Service Date/Time: Tuesday, November 14, 2017 08:44 - CONCLUSION: Atherosclerosis with severe stenosis at the origin of the left renal artery. Renal cysts. Diverticulosis. Soto Luevano MD Chest X-Ray 11/13/17 6763 Signed Impressions: Service Date/Time: Monday, November 13, 2017 19:09 - CONCLUSION: 1. Bibasilar atelectasis. Bhaskar Quezada MD Objective Remarks GENERAL: NAD SKIN: Warm and dry. HEAD: Normocephalic. EYES: No scleral icterus. No injection or drainage. NECK: Supple, trachea midline. No JVD or lymphadenopathy. CARDIOVASCULAR: Regular rate and rhythm without murmurs, gallops, or rubs. RESPIRATORY: Breath sounds equal bilaterally. No accessory muscle use. GASTROINTESTINAL: Abdomen soft, non-tender, nondistended. MUSCULOSKELETAL: No cyanosis, or edema. BACK: Nontender without obvious deformity. No CVA tenderness. A/P Problem List: (1) Hypertensive urgency ICD Code: I16.0 - Hypertensive urgency (2) Renal artery stenosis ICD Code: I70.1 - Atherosclerosis of renal artery Assessment and Plan 72-year-old man with Hypertensive urgency Renal artery stenosis -Blood pressure was improved after Apresoline IV in the emergency department -Blood pressure medication were continued to include Lopressor 25 mg twice daily Apresoline 50 mg every 8 hours Losartan 100 mg daily Continue Procardia XL 60 mg daily -24 hour urine pending, Renin pending -Interventional radiology consulted for angiography/renal artery stent placement today 11/15/17 History of bowel disease Resume allopurinol DVT prophylaxis: Bhaskar Snyder MD Nov 15, 2017 10:19
[2017-11-15] MEDS ORDERED: fentaNYL CITRATE 250 MCG/5 ML AMP ONE (13:43)
[2017-11-15] MEDS ORDERED: MIDAZOLAM HCL 5 MG/5 ML VIAL ONE (13:43)
[2017-11-15] MEDS ORDERED: VERAPAMIL HCL 5 MG/2 ML VIAL ONE (14:10)
[2017-11-15] MEDS ORDERED: HEPARIN SODIUM - IV 10,000 UNITS/10 ML VIAL ONE (14:48)
[2017-11-15] MEDS ORDERED: ceFAZolin 2 GM PREMIX 50 ML ONE (14:48)
[2017-11-15] MEDS ORDERED: PROTAMINE SULFATE 50 MG/5 ML VIAL ONE (15:02)
[2017-11-15] MEDS ORDERED: CLOPIDOGREL 300 MG TAB PO ONE (15:45)
--- NOTE | 2017-11-15 16:33 | PD.RAD ---
Post Procedure Progress Note Pre Procedure Diagnosis: (1) Renal artery stenosis (2) Hypertensive urgency Post Procedure Diagnosis: (1) Renal artery stenosis (2) Hypertensive urgency Procedure Date: Nov 15, 2017 Supervising Radiologist: Adithya Leon Proceduralist/Assist: Chris Lujan, RT(R), Bernie Tiwari RT(R) Anesthesia: Conscious Sedation Plan of Activity Patient to Unit: [facility] Patient Condition: Good See PACS Report for procedural detail/treatment Adithya Leon MD Nov 15, 2017 16:33
[2017-11-16] VITALS: BP 137/79; PULSE 79; RESP 17; TEMP 97.4; O2SAT 93
[2017-11-16 04:00] VITALS: BP 158/76; PULSE 87; RESP 18; TEMP 97.7; O2SAT 94
[2017-11-16 04:57] VITALS: PULSE 65
[2017-11-16] MEDS: hydrALAZINE HCL 50 MG TAB PO SCH (05:23)
[2017-11-16 08:00] VITALS: BP 147/80; PULSE 89; RESP 18; TEMP 97.2; O2SAT 95
[2017-11-16] MEDS: SODIUM CHLORIDE 0.9% FLUSH 10 ML FLUSH IV FLUSH SCH (08:42)
[2017-11-16] MEDS: LOSARTAN 50 MG TAB PO SCH (08:42)
[2017-11-16] MEDS: METOPROLOL TARTRATE 50 MG TAB PO SCH (08:42)
[2017-11-16] MEDS: NIFEdipine 60 MG SUSTAINED RELEASE TAB PO SCH (08:42)
[2017-11-16] MEDS ORDERED: ALLOPURINOL 100 MG TAB PO SCH (09:00)
[2017-11-16] MEDS ORDERED: COZA50TA PO (10:12)
[2017-11-16] MEDS ORDERED: HYDR-3800 PO (10:12)
[2017-11-16] MEDS ORDERED: METO-309 PO (10:12)
[2017-11-16] MEDS ORDERED: NIFE60TA8 PO (10:12)
--- NOTE | 2017-11-16 15:26 | RADRPT ---
EXAM DATE/TIME: 11/15/2017 13:12 [facility] COMPARISON: No previous studies available for comparison. INDICATIONS : 72-year-old male with history of recurrent admission for life threatening hypertensive urgency despit e triple antihypertensive therapy. CTA examination demonstrates a severe stenosis of the proximal lef t renal artery. Case has been discussed with nephrology and cardiology and plan is for renal artery s tenting. MEDICAL HISTORY : Hypertension Gouty Arthritis SURGICAL HISTORY : Left Eye cataract surgery Right shoulder repair ENCOUNTER: Initial ACUITY: 2 days PAIN SCORE: 0/10 FLUORO TIME: 4.1 minutes IMAGE SERIES: 6 ACCESS SITE: Right Femoral artery SEDATION TIME: 26 minutes CONTRAST: 1.) 50 cc Visipaque (iodixanol) MEDICATION(S): 1.) 3 mg midazolam (Versed) IV 2.) 150 mcg fentanyl (Sublimaze) IV DEVICE(S): 1.) Left renal stent (balloon expanding) 7mm x 27mm 75 cm PROCEDURE : 1. Ultrasound-guided puncture of the access site. 2. Conscious sedation with continuous EKG and Oximetry monitoring. 3. Left renal artery angiogram 4. Left renal artery stent placement 5. Right common femoral artery Angio-Seal vascular closure. The risks, benefits and alternatives to the procedure were explained and verbal and written consent w as obtained. The site was prepped in sterile fashion. Full sterile technique was used, including ca p, mask, sterile gloves and gown and a large sterile sheet. Hand hygiene and 2% chlorhexidine and/or betadine/alcohol prep was utilized per protocol for cutaneous antisepsis. Sterile gel and sterile p robe cover were utilized for ultrasound guidance. The skin and subcutaneous tissues were infiltrated with local anesthetic solution. With ultrasound and fluoroscopic guidance the selected artery was punctured and a vascular sheath was placed. A Cobra catheter was used to select the left renal artery. Left renal angiography was perfor med confirming CT angiogram findings of focal severe stenosis of the proximal left renal artery just beyond the origin. Next, a 6 Maltese Monster sheath was placed. 7 x 27 mm balloon expandable stent was t hen deployed. Followup angiography demonstrated excellent angiographic result. Wires and catheters we re then removed. Right common femoral artery access site was subsequently closed with Angio-Seal clos ure device and manual compression. The patient tolerated the procedure well and there were no complic ations. Conscious sedation was performed with the prescribed dosages and duration as above in the presence of an independent trained radiology nurse to assist in the monitoring of the patient. EKG and oximetry remained stable throughout the procedure. CONCLUSION: 1. Uncomplicated placement of 7 mm left renal artery stent, as above. Adithya Leon MD on November 16, 2017 at 14:28 Board Certified Radiologist. This report was verified electronically.
--- NOTE | 2017-11-16 15:42 | HHI.PR ---
Subjective Remarks Follow-up hypertensive urgency/renal artery stenosis November 15, 2017-patient seen and examined, currently normotensive and patient denies any chest pain, shortness of breath with dizziness. Also denies any headaches or visual disturbances. N.p.o. pending renal artery stent placement November 16, 2017-patient seen and examined, BP improved. He is status post angiography with renal stent placed yesterday Objective Vitals Vital Signs Date Time Temp Pulse Resp B/P (MAP) Pulse Ox O2 Delivery O2 Flow Rate FiO2 11/16/17 08:00 97.2 89 18 147/80 (102) 95 11/16/17 04:57 65 11/16/17 04:00 97.7 87 18 158/76 (103) 94 11/16/17 00:00 97.4 79 17 137/79 (98) 93 11/15/17 20:14 162/82 (108) 11/15/17 18:56 97.5 88 17 133/78 (96) 96 11/15/17 16:30 85 18 151/79 (103) 95 11/15/17 16:00 97.5 85 18 147/82 (103) 95 11/15/17 15:45 76 18 159/75 (103) 95 I/O 11/15/17 11/15/17 11/15/17 11/16/17 11/16/17 11/16/17 07:00 15:00 23:00 07:00 15:00 23:00 Intake Total 0 ml 25 ml Output Total 500 ml Balance -500 ml 25 ml Intake Oral 0 ml IV Total 25 ml Output Urine Total 500 ml # Bowel Movements 0 Result Diagram: 11/15/17 0653 11/14/17 0633 Imaging Last Impressions Stent X-Ray 11/15/17 0000 Signed Impressions: Service Date/Time: Wednesday, November 15, 2017 13:12 - CONCLUSION: 1. Uncomplicated placement of 7 mm left renal artery stent, as above. Adithya Leon MD Abdomen/Pelvis CT 11/14/17 0000 Signed Impressions: Service Date/Time: Tuesday, November 14, 2017 08:44 - CONCLUSION: Atherosclerosis with severe stenosis at the origin of the left renal artery. Renal cysts. Diverticulosis. Soto Luevano MD Chest X-Ray 11/13/17 8889 Signed Impressions: Service Date/Time: Monday, November 13, 2017 19:09 - CONCLUSION: 1. Bibasilar atelectasis. Bhaskar Quezada MD Objective Remarks GENERAL: NAD SKIN: Warm and dry. HEAD: Normocephalic. EYES: No scleral icterus. No injection or drainage. NECK: Supple, trachea midline. No JVD or lymphadenopathy. CARDIOVASCULAR: Regular rate and rhythm without murmurs, gallops, or rubs. RESPIRATORY: Breath sounds equal bilaterally. No accessory muscle use. GASTROINTESTINAL: Abdomen soft, non-tender, nondistended. MUSCULOSKELETAL: No cyanosis, or edema. BACK: Nontender without obvious deformity. No CVA tenderness. Procedures Left renal artery stent placed November 15, 2017 A/P Problem List: (1) Hypertensive urgency ICD Code: I16.0 - Hypertensive urgency (2) Renal artery stenosis ICD Code: I70.1 - Atherosclerosis of renal artery Assessment and Plan 72-year-old man with Hypertensive urgency-Resolved Renal artery stenosis -Blood pressure was improved after Apresoline IV in the emergency department -Blood pressure medication were continued to include Lopressor 25 mg twice daily Apresoline 50 mg every 8 hours Losartan 100 mg daily Continue Procardia XL 60 mg daily -24 hour urine pending, Renin pending -Interventional radiology consulted and patient is s/p Left renal artery stent placed November 15, 2017 History of bowel disease Continue allopurinol DVT prophylaxis: Bhaskar Snyder MD November 16, 2017 15:42
--- NOTE | 2017-11-16 15:43 | HHI.DS ---
Discharge Summary Admission Date Nov 13, 2017 at 20:25 Discharge Date: November 16, 2017 Admitting Diagnosis Accelerated Hypertension (1) Hypertensive urgency ICD Code: I16.0 - Hypertensive urgency (2) Renal artery stenosis ICD Code: I70.1 - Atherosclerosis of renal artery Procedures Left renal artery stent placed November 15, 2017 Brief History - From Admission This is a 72-year-old male with known history of hypertension, gouty arthritis who presented to the hospital because of elevated blood pressure. Patient was just recently moved to the hospital for accelerated hypertension, epistaxis and had medication adjustment from 11/03/17 until 11/05/17. Patient was doing well and monitoring blood pressure on a regular basis. I did review patient's blood pressure record and indicated that his blood pressure readings were anywhere from 120-160 on a daily basis. Patient is to follow-up with his primary medical doctor and they did increase his Apresoline to 50 mg 3 times daily. Patient was doing well until yesterday when he checked his blood pressure and at 5 PM, systolic pressure is 190 and then rechecked it again is 205 because of that he came to the emergency department for evaluation. Patient denies any headache, blurred vision, nausea, vomiting, chest pain, abdominal pain, denied any recurrent epistaxis. When the patient came to emergency department blood pressure was 250/115. Patient was given Apresoline IV in the emergency department with improvement of his blood pressure down to 149/77. ER physician recommended the patient be observed in the hospital for continued management of his blood pressure. This morning patient blood pressure did go back up to 198/116. Patient was given clonidine p.o. with improvement of the blood pressure. Given the patient having significant hypertensive urgency with labile blood pressure patient will require further evaluation and management to try to evaluate is patient has any underlying condition that would cause his apparent uncontrolled hypertension. CBC/BMP: 11/15/17 0653 11/14/17 0633 Significant Findings Laboratory Tests Test 11/13/17 19:20 11/14/17 06:33 11/14/17 09:30 11/14/17 09:45 Monocytes (%) (Auto) 8.4 % (0.0-8.0) Basophils (%) (Auto) 3.8 % (0.0-2.0) Basophils # (Auto) 0.3 TH/MM3 (0-0.2) Random Glucose 108 MG/DL (74-106) 131 MG/DL (74-106) Estimat Glomerular Filtration Rate 66 ML/MIN (>89) 79 ML/MIN (>89) Neutrophils (%) (Auto) 74.7 % (16.0-70.0) Albumin 3.1 GM/DL (3.4-5.0) Aspartate Amino Transf (AST/SGOT) 44 U/L (15-37) Test 11/15/17 06:53 11/15/17 07:00 Neutrophils (%) (Auto) 72.1 % (16.0-70.0) Monocytes (%) (Auto) 9.2 % (0.0-8.0) Imaging Last Impressions Stent X-Ray 11/15/17 0000 Signed Impressions: Service Date/Time: Wednesday, November 15, 2017 13:12 - CONCLUSION: 1. Uncomplicated placement of 7 mm left renal artery stent, as above. Adithya Leon MD Abdomen/Pelvis CT 11/14/17 0000 Signed Impressions: Service Date/Time: Tuesday, November 14, 2017 08:44 - CONCLUSION: Atherosclerosis with severe stenosis at the origin of the left renal artery. Renal cysts. Diverticulosis. Soto Luevano MD Chest X-Ray 11/13/17 1853 Signed Impressions: Service Date/Time: Monday, November 13, 2017 19:09 - CONCLUSION: 1. Bibasilar atelectasis. Bhaskar Quezada MD PE at Discharge GENERAL: NAD SKIN: Warm and dry. HEAD: Normocephalic. EYES: No scleral icterus. No injection or drainage. NECK: Supple, trachea midline. No JVD or lymphadenopathy. CARDIOVASCULAR: Regular rate and rhythm without murmurs, gallops, or rubs. RESPIRATORY: Breath sounds equal bilaterally. No accessory muscle use. GASTROINTESTINAL: Abdomen soft, non-tender, nondistended. MUSCULOSKELETAL: No cyanosis, or edema. BACK: Nontender without obvious deformity. No CVA tenderness. Hospital Course While in hospital, patient was treated for: Hypertensive urgency-Resolved Renal artery stenosis -Blood pressure was improved after Apresoline IV in the emergency department -Blood pressure medication were continued to include Lopressor 25 mg twice daily Apresoline 50 mg every 8 hours Losartan 100 mg daily Continue Procardia XL 60 mg daily -24 hour urine pending, Renin pending -Interventional radiology consulted and patient was s/p Left renal artery stent placed November 15, 2017 History of bowel disease Treated with allopurinol DVT prophylaxis: B-SCDs Pt Condition on Discharge: Good Discharge Disposition: Discharge Home Discharge Time: <= 30 minutes Discharge Instructions DIET: Follow Instructions for: Heart Healthy Diet Activities you can perform: Regular-No Restrictions Follow up Referrals: PCP Follow-up - 1 Week with Alban Youssef MD New Medications: Hydralazine HCl (Hydralazine HCl) 50 Mg Tablet 50 MG PO Q8HR for Blood Pressure Management, #90 MG 3 Refills Losartan (Cozaar) 50 Mg Tab 100 MG PO DAILY for Blood Pressure Management, #30 TAB 3 Refills Metoprolol Tartrate (Lopressor) 50 Mg Tab 50 MG PO Q12HR for Blood Pressure Management, #60 TAB 3 Refills Nifedipine ER 24 HR (Nifedipine ER 24 HR) 60 Mg Tab 60 MG PO DAILY for Blood Pressure Management, #30 TAB 3 Refills Continued Medications: Allopurinol (Allopurinol) 300 Mg Tab 100 MG PO DAILY for Gout, #30 TAB 0 Refills Discontinued Medications: Carvedilol (Coreg) 12.5 Mg Tab 12.5 MG PO Q12HR for hypertension for 90 Days, #180 TAB Hydralazine HCl (Hydralazine HCl) 25 Mg Tablet 50 MG PO TID for Blood Pressure Management, #90 TAB 0 Refills Losartan (Losartan) 25 Mg Tab 100 PO DAILY for Blood Pressure Management, #15 TAB 0 Refills Bhaskar Doan MD November 16, 2017 15:43
[2017-11-17 16:17] LABS: COLLECTION DURATION 24 h; URINE DOPAMINE 230 mcg/24 h (65-400); URINE EPINEPHRINE 17 mcg/24 h (<21); URINE NOREPINEPHRINE 86 mcg/24 h (15-80); URINE TOTAL VOLUME 1900 mL
[2017-11-17 20:21] LABS: METANEPHRINE 24 194 mcg/24 h; METANEPHRINE 24 COLLECTION DUR 24 h; NORMETANEPHRINE 24 536 mcg/24 h; TOTAL METANEPHRINE 730 mcg/24 h; URINE TOTAL VOLUME 1900 mL
== END 2017-11-16 13:04 | disposition home or self-care (01) ==
LOC: PHED 18:39 → PHEDA 20:25 → PH3B 22:14 → N07A 11-14 14:53
PROVIDERS: ADMIT Hospitalist; ATTEND Hospitalist
DX: I16.0 Hypertensive urgency (principal); I70.1 Atherosclerosis of renal artery; I10 Essential (primary) hypertension; I70.90 Unspecified atherosclerosis; K57.90 Diverticulosis of intestine, part unspecified, without perforation or abscess without bleeding; N28.1 Cyst of kidney, acquired; Z79.899 Other long term (current) drug therapy; Z87.891 Personal history of nicotine dependence
CPT/HCPCS: 36251; 37236; 71045; 74174; 76937; 80048; 80053; 80061; 81001; 82384; 83735; 83835; 84244; 84443; 84550; 85025; 85610; 85730; 93005; 96374; 99152; 99153; 99285; C1760; C1769; C1876; C1894; G0378; J0360; J0690; J1644; J2250; J2720; J3010; Q9967

== ENCOUNTER 2017-11-21 14:02 | Inpatient (IN) | payer OTHER, MEDICARE ==
[2017-11-21] VITALS (10 sets, daily range): BP systolic 118–144; BP diastolic 68–87; PULSE 74–171; RESP 13–22; TEMP 97.8–98.7; O2SAT 95–98
[~2017-11-21 14:02] MED LIST changes: -AMOX875T PO; -ASPI81TA23 PO; -CARV12.5 PO; +COZA50TA PO; -HYDR-3799 PO; +HYDR-3800 PO; -LOSA25TA PO; +METO-309 PO; +NIFE60TA8 PO
[2017-11-21] MEDS ORDERED: ADENOSINE IV SOLN 3 MG/ML 2 ML VIAL IV PUSH ONE (14:30)
--- NOTE | 2017-11-21 14:46 | PD ---
HPI Chief Complaint: Cardiac Complaint Time Seen by Provider: 14:12 Travel History International Travel<30 days: No Contact w/Intl Traveler<30days: No Traveled to known affect area: No History of Present Illness HPI This patient checked his blood pressure and heart rate at home. He tracks them frequently. He has history of difficult to control hypertension. His heart rate was 170. He called his pharmacist and was told to come to the emergency room. Patient does have some lightheadedness. He is not having any chest pain. No syncope. He was just released from the hospital a few days ago. Symptom severity is moderate. Duration one day. No alleviating factors. No exacerbating factors. PFSH Past Medical History Hx Anticoagulant Therapy: No Arthritis: Yes Anxiety: No Depression: No Cancer: No Cardiovascular Problems: Yes Coronary Artery Disease: Yes Diabetes: No Diminished Hearing: No Endocrine: No Gastrointestinal Disorders: Yes Gout: Yes Genitourinary: No Hepatitis: No Hiatal Hernia: No Hypertension: Yes Immune Disorder: No Musculoskeletal: Yes Neurologic: No Psychiatric: No Reproductive: No Respiratory: Yes Thyroid Disease: No PNEUMOCCOCAL Vaccine (Year): 2 Past Surgical History Eye Surgery: Yes (CATARACT SX) Genitourinary Surgery: Yes (RENAL STENT) Pacemaker: No Other Surgery: Yes Social History Alcohol Use: Yes (daily) Tobacco Use: No (quit 13 yrs ago) Substance Use: No Allergies-Medications (Allergen,Severity, Reaction): Coded Allergies: No Known Allergies (Verified Adverse Reaction, Unknown, 11/03/17) Reported Meds & Prescriptions Reported Meds & Active Scripts Active Nifedipine ER 24 HR (Nifedipine) 60 Mg Tab 60 Mg PO DAILY Cozaar (Losartan Potassium) 50 Mg Tab 100 Mg PO DAILY Lopressor (Metoprolol Tartrate) 50 Mg Tab 50 Mg PO Q12HR Hydralazine HCl 50 Mg Tablet 50 Mg PO Q8HR Reported Allopurinol 300 Mg Tab 100 Mg PO DAILY Review of Systems General / Constitutional: No: Fever Eyes: No: Visual changes HENT: Positive: Lightheadedness, No: Headaches Cardiovascular: Positive: Tachycardia, No: Chest Pain or Discomfort Respiratory: No: Shortness of Breath Gastrointestinal: No: Abdominal Pain Genitourinary: No: Dysuria Musculoskeletal: No: Pain Skin: No Rash Neurologic: No: Weakness Psychiatric: No: Depression Endocrine: No: Polydipsia Hematologic/Lymphatic: No: Easy Bruising Physical Exam Narrative GENERAL: Well-nourished, well-developed patient in with tachycardia and lightheadedness. SKIN: Focused skin assessment reveals no rash and nodules. Skin is Warm and dry. HEAD: Atraumatic. Normocephalic. EYES: Pupils equal and round. No scleral icterus. No injection or drainage. ENT: No nasal bleeding or discharge. Mucous membranes pink and moist. NECK: Trachea midline. No JVD. CARDIOVASCULAR: Regular rate and rhythm. No murmur appreciated. Tachycardic at 170. There is occasional PVC RESPIRATORY: No accessory muscle use. Clear to auscultation. Breath sounds equal bilaterally. GASTROINTESTINAL: Abdomen soft, non-tender, nondistended. Hepatic and splenic margins not palpable. MUSCULOSKELETAL: No obvious deformities. No clubbing. No cyanosis. No edema. NEUROLOGICAL: Awake and alert. No obvious cranial nerve deficits. Motor grossly within normal limits. Normal speech. PSYCHIATRIC: Appropriate mood and affect; insight and judgment normal. Data Data Last Documented VS Vital Signs Date Time Temp Pulse Resp B/P (MAP) Pulse Ox O2 Delivery O2 Flow Rate FiO2 11/21/17 15:33 122 18 118/68 (85) 98 Room Air 11/21/17 14:24 97.8 Orders Orders Iv Access Insert/Monitor (11/21/17 14:16) Mental Health Associate / Telemetry LAUREL.Q8H (11/21/17 14:16) Complete Blood Count With Diff (11/21/17 14:16) Basic Metabolic Panel (Bmp) (11/21/17 14:16) Adenosine Inj (Adenocard Inj) (11/21/17 14:30) Chest, Single Ap (11/21/17 ) Ckmb (Isoenzyme) Profile (11/21/17 14:39) Troponin I (11/21/17 14:39) Thyroid Stimulating Hormone (11/21/17 14:40) Diltiazem Inj (Cardizem Inj) (11/21/17 16:30) Diltiazem Inj (Cardizem Inj) (11/21/17 16:45) Electrocardiogram (11/21/17 14:22) Admit Order (Ed Use Only) (11/21/17 17:03) Labs Laboratory Tests Test 11/21/17 14:10 White Blood Count 9.1 TH/MM3 Red Blood Count 5.09 MIL/MM3 Hemoglobin 15.5 GM/DL Hematocrit 47.0 % Mean Corpuscular Volume 92.4 FL Mean Corpuscular Hemoglobin 30.5 PG Mean Corpuscular Hemoglobin Concent 33.0 % Red Cell Distribution Width 12.9 % Platelet Count 235 TH/MM3 Mean Platelet Volume 10.9 FL Neutrophils (%) (Auto) 63.4 % Lymphocytes (%) (Auto) 18.2 % Monocytes (%) (Auto) 12.4 % Eosinophils (%) (Auto) 4.8 % Basophils (%) (Auto) 1.2 % Neutrophils # (Auto) 5.8 TH/MM3 Lymphocytes # (Auto) 1.7 TH/MM3 Monocytes # (Auto) 1.1 TH/MM3 Eosinophils # (Auto) 0.4 TH/MM3 Basophils # (Auto) 0.1 TH/MM3 CBC Comment DIFF FINAL Differential Comment Blood Urea Nitrogen 18 MG/DL Creatinine 1.50 MG/DL Random Glucose 126 MG/DL Calcium Level 9.0 MG/DL Sodium Level 133 MEQ/L Potassium Level 3.9 MEQ/L Chloride Level 99 MEQ/L Carbon Dioxide Level 23.7 MEQ/L Anion Gap 10 MEQ/L Estimat Glomerular Filtration Rate 46 ML/MIN Total Creatine Kinase 51 U/L Troponin I LESS THAN 0.02 NG/ML Thyroid Stimulating Hormone 3rd Gen 6.080 uIU/ML MDM Medical Decision Making Medical Screen Exam Complete: Yes Emergency Medical Condition: Yes Medical Record Reviewed: Yes Differential Diagnosis SVT, A. fib with RVR, V. tach Narrative Course I have reviewed the patient's electronic medical record. Reviewed his admission history and physical and discharge summary from November 16 IV placed and labs sent I reviewed his EKG which shows a regular Narrow complex tachycardia at 170 I think this is SVT Extended cardiac monitoring confirms regular narrow complex sinus tachycardia at 170 I gave him 6 mg IV adenosine He rapidly converted to a sinus tachycardia at 120. He does have frequent PVCs I reviewed a second EKG which shows this finding I reviewed his chest x-ray which is normal CBC is normal Metabolic profile is normal CK is normal Troponin is normal tsh is slightly elevated Patient ambulated to the bathroom and the exertion of the ambulation caused in some chest pressure. He also came back to the room with the heart rate in the 150s which is now irregularly irregular and looks different from prior This looks like A. fib with RVR would be a new onset. I gave him 20 mg IV Cardizem He is now in a sinus rhythm at about 100. I reviewed with the hospitalist who will admit to intermediate care in Case he needs continued IV Cardizem Critical Care Narrative Aggregate critical care time was 34 minutes. Time to perform other separately billable procedures was not included in the critical care time. My time did not include minutes spent treating any other patients simultaneously or on activities that did not directly contribute to the patient's treatment. The services I provided to this patient were to treat and/or prevent clinically significant deterioration that could result in: Cardiopulmonary arrest, cardiogenic shock, cardiac arrhythmia I provided critical care services requiring my management, as noted below: Chart data review, documentation time, medication orders and management, vital sign assessments/reviewing monitor data, ordering and reviewing lab tests, ordering and interpreting/reviewing x-rays and diagnostic studies, care of the patient and discussion of the patient with the admitting physicians. Diagnosis Primary Impression: Atrial fibrillation with RVR Additional Impressions: New onset atrial fibrillation Chest pressure Admitting Information Admitting Physician Requests: Dano [place] MD November 21, 2017 14:46
[2017-11-21 14:55] LABS: AUTOMATED NEUTROPHIL # 5.8 TH/MM3 (1.8-7.7); BASOPHIL # 0.1 TH/MM3 (0-0.2); BASOPHIL % 1.2 % (0.0-2.0); EOSINOPHIL # 0.4 TH/MM3 (0-0.4); EOSINOPHIL % 4.8 % (0.0-4.0); HEMOGLOBIN 15.5 GM/DL (13.0-17.0); LYMPH % 18.2 % (9.0-44.0); LYMPHOCYTE # 1.7 TH/MM3 (1.0-4.8); MEAN CELL VOLUME 92.4 FL (80.0-100.0); MEAN CORPUSCULAR HEMOGLOBIN 30.5 PG (27.0-34.0); MEAN PLATELET VOLUME 10.9 FL (7.0-11.0); MONO % 12.4 % (0.0-8.0); MONOCYTE # 1.1 TH/MM3 (0-0.9); NEUT % 63.4 % (16.0-70.0); PLATELET COUNT 235 TH/MM3 (150-450); RED BLOOD COUNT 5.09 MIL/MM3 (4.50-5.90); RED CELL DISTRIBUTION WIDTH 12.9 % (11.6-17.2); WHITE BLOOD COUNT 9.1 TH/MM3 (4.0-11.0)
--- NOTE | 2017-11-21 14:55 | RADRPT ---
EXAM DATE/TIME: 11/21/2017 14:42 [facility] COMPARISON: CHEST SINGLE AP, November 13, 2017, 19:09. INDICATIONS : Short of breath MEDICAL HISTORY : None. SURGICAL HISTORY : None. ENCOUNTER: Initial ACUITY: 1 day PAIN SCORE: 0/10 LOCATION: Bilateral chest FINDINGS: Single AP view of the chest. The lungs are clear. Cardiomediastinal silhouette within normal limits. No evidence of pleural effusion or pneumothorax. CONCLUSION: No acute cardiopulmonary disease identified. Praneeth Patrick MD on November 21, 2017 at 14:52 Board Certified Radiologist. This report was verified electronically.
[2017-11-21 14:59] LABS: BICARBONATE 23.7 MEQ/L (21.0-32.0)
[2017-11-21 15:03] LABS: CREATININE 1.5 MG/DL (0.60-1.30)
[2017-11-21 15:07] LABS: TROPONIN I LESS THAN 0.02 NG/ML (0.02-0.05)
[2017-11-21] MEDS ORDERED: DILTIAZEM HCL 25 MG/5 ML VIAL IV ONE (16:30)
[2017-11-21] MEDS ORDERED: DILTIAZEM HCL 50 MG/10 ML VIAL IV ONE (16:45)
[2017-11-21] MEDS ORDERED: SODIUM CHLOR 0.9% 1000 ML INJ 1,000 ML IV SCH (17:44)
[2017-11-21] MEDS ORDERED: SODIUM CHLORIDE 0.9% FLUSH 10 ML FLUSH IV FLUSH PRN (17:45)
[2017-11-21] MEDS ORDERED: ACETAMINOPHEN 325 MG TAB PO PRN ×2 (17:45)
[2017-11-21] MEDS ORDERED: NALOXONE HCL 0.4 MG/ML AMP IV PUSH PRN (17:45)
--- NOTE | 2017-11-21 18:05 | HHI.HP ---
[facility] Service [place] [facility] Primary Care Physician Alban Youssef MD Admission Diagnosis new onset afib with rvr, chest pressure Diagnoses: Chief Complaint: Palpitations Travel History International Travel<30 Days: No Contact w/Intl Traveler <30 Da: No Traveled to Known Affected Are: No History of Present Illness The patient is a 72-year-old male with a past medical history of renal artery stenosis who is presenting to the hospital with palpitations. He said this morning he was feeling lightheaded and woozy. He checked his heart rate and blood pressure with his machine several times and noticed that his heart rate has been elevated anywhere from 120-170. He said he had shortness of breath associated with his fast heart rate. He said he felt like his right arm had some jitters. As his symptoms continued he decided to drive himself to the emergency department. He says he recently had a stent placed for renal artery stenosis and his blood pressure sometimes gets as high as 160 at home. He says the blood pressure medications he receives make him lightheaded on a regular basis. He says he recently had a major nosebleed but he has not had any further bleeding since having his blood pressure controlled. Review of Systems Except as stated in HPI: all other systems reviewed are Neg Past Family Social History Past Medical History Hypertension Renal artery stenosis Gout Past Surgical History Left eye cataract surgery Right shoulder repair Allergies: Coded Allergies: No Known Allergies (Verified Adverse Reaction, Unknown, 11/03/17) Family History CAD Multiple sclerosis Social History The patient does not smoke. He has rare alcohol intake. Physical Exam Vital Signs Vital Signs Date Time Temp Pulse Resp B/P (MAP) Pulse Ox O2 Delivery O2 Flow Rate FiO2 11/21/17 17:29 116 18 123/72 (89) 95 Room Air 11/21/17 16:30 152 18 140/86 (104) 96 Room Air 11/21/17 15:33 122 18 118/68 (85) 98 Room Air 11/21/17 15:00 119 136/85 (102) 97 Room Air 11/21/17 14:24 97.8 128 20 136/85 (102) 96 Room Air 11/21/17 14:15 99 Room Air 11/21/17 14:05 97.9 171 22 120/75 (90) 98 Physical Exam GENERAL: Well-nourished, well-developed patient in no acute distress. SKIN: Focused skin assessment reveals no rash and nodules. Skin is Warm and dry. HEAD: Atraumatic. Normocephalic. EYES: Pupils equal and round. No scleral icterus. No injection or drainage. ENT: No nasal bleeding or discharge. Mucous membranes pink and moist. NECK: Trachea midline. No JVD. CARDIOVASCULAR: Tachycardic, irregularly irregular rhythm. RESPIRATORY: No accessory muscle use. Clear to auscultation. Breath sounds equal bilaterally. GASTROINTESTINAL: Abdomen soft, non-tender, nondistended. Hepatic and splenic margins not palpable. MUSCULOSKELETAL: No obvious deformities. No clubbing. No cyanosis. No edema. NEUROLOGICAL: Awake and alert. No obvious cranial nerve deficits. Motor grossly within normal limits. Normal speech. PSYCHIATRIC: Appropriate mood and affect; insight and judgment normal. Laboratory Laboratory Tests Test 11/21/17 14:10 White Blood Count 9.1 Red Blood Count 5.09 Hemoglobin 15.5 Hematocrit 47.0 Mean Corpuscular Volume 92.4 Mean Corpuscular Hemoglobin 30.5 Mean Corpuscular Hemoglobin Concent 33.0 Red Cell Distribution Width 12.9 Platelet Count 235 Mean Platelet Volume 10.9 Neutrophils (%) (Auto) 63.4 Lymphocytes (%) (Auto) 18.2 Monocytes (%) (Auto) 12.4 Eosinophils (%) (Auto) 4.8 Basophils (%) (Auto) 1.2 Neutrophils # (Auto) 5.8 Lymphocytes # (Auto) 1.7 Monocytes # (Auto) 1.1 Eosinophils # (Auto) 0.4 Basophils # (Auto) 0.1 CBC Comment DIFF FINAL Differential Comment Blood Urea Nitrogen 18 Creatinine 1.50 Random Glucose 126 Calcium Level 9.0 Sodium Level 133 Potassium Level 3.9 Chloride Level 99 Carbon Dioxide Level 23.7 Anion Gap 10 Estimat Glomerular Filtration Rate 46 Total Creatine Kinase 51 Troponin I LESS THAN 0.02 Thyroid Stimulating Hormone 3rd Gen 6.080 Result Diagram: 11/21/17 1410 11/21/17 1410 Imaging Last Impressions Chest X-Ray 11/21/17 0000 Signed Impressions: Service Date/Time: Tuesday, November 21, 2017 14:42 - CONCLUSION: No acute cardiopulmonary disease identified. Praneeth Patrick MD Caprini VTE Risk Assessment Caprini VTE Risk Assessment: Mod/High Risk (score >= 2) Caprini Risk Assessment Model Point Value = 1 Point Value = 2 Point Value = 3 Point Value = 5 Age 41-60 Minor surgery BMI > 25 kg/m2 Swollen legs Varicose veins or History of unexplained or recurrent spontaneous Oral contraceptives or hormone replacement Sepsis (< 1 month) Serious lung disease, including pneumonia (< 1 month) Abnormal pulmonary function Acute myocardial infarction Congestive heart failure (< 1 month) History of inflammatory bowel disease Medical patient at bed rest Age 61-74 Arthroscopic surgery Major open surgery (> 45 min) Laparoscopic surgery (> 45 min) Malignancy Confined to bed (> 72 hours) Immobilizing plaster cast Central venous access Age >= 75 History of VTE Family history of VTE Factor V Leiden Prothrombin [id number] Lupus anticoagulant Anticardiolipin antibodies Elevated serum homocysteine Heparin-induced thrombocytopenia Other congenital or acquired thrombophilia Stroke (< 1 month) Elective arthroplasty Hip, pelvis, or leg fracture Acute spinal cord injury (< 1 month) Prophylaxis Regimen Total Risk Factor Score Risk Level Prophylaxis Regimen 0-1 Low Early ambulation 2 Moderate Order ONE of the following: *Sequential Compression Device (SCD) *Heparin 5000 units SQ BID 3-4 Higher Order ONE of the following medications: *Heparin 5000 units SQ TID *Enoxaparin/Lovenox 40 mg SQ daily (WT < 150 kg, CrCl > 30 mL/min) *Enoxaparin/Lovenox 30 mg SQ daily (WT < 150 kg, CrCl > 10-29 mL/min) *Enoxaparin/Lovenox 30 mg SQ BID (WT < 150 kg, CrCl > 30 mL/min) AND/OR *Sequential Compression Device (SCD) 5 or more Highest Order ONE of the following medications: *Heparin 5000 units SQ TID (Preferred with Epidurals) *Enoxaparin/Lovenox 40 mg SQ daily (WT < 150 kg, CrCl > 30 mL/min) *Enoxaparin/Lovenox 30 mg SQ daily (WT < 150 kg, CrCl > 10-29 mL/min) *Enoxaparin/Lovenox 30 mg SQ BID (WT < 150 kg, CrCl > 30 mL/min) AND *Sequential Compression Device (SCD) Assessment and Plan Assessment and Plan Atrial fibrillation with RVR New onset. The patient initially required adenosine in the emergency department but the rhythm then seemed to change from SVT to A. fib with RVR. - Increase Lopressor to 75 mg p.o. twice daily. - Check an echocardiogram. - Consult cardiology. - start ASA. - telemetry. - trend trops. Renal insufficiency Possibly secondary to hypertension or blood pressure medications. - Hold losartan. - IV fluids. - Follow BMP and avoid nephrotoxic agents. Hypertension Secondary to renal artery stenosis. - Continue home medications. - Clonidine as needed. Gout The pt does not want to be on allopurinol anymore. - hold allopurinol. Hyponatremia Na borderline low. - IVFs and monitor BMP. PPx: Heparin Code Status Full Physician Certification 2 Midnight Certification Type: Admission for Inpatient Services Order for Inpatient Services The services are ordered in accordance with Medicare regulations or non- Medicare payer requirements, as applicable. In the case of services not specified as inpatient-only, they are appropriately provided as inpatient services in accordance with the 2-midnight benchmark. Estimated LOS (days): 2 days is the estimated time the patient will need to remain in the hospital, assuming treatment plan goals are met and no additional complications. Post-Hospital Plan: Home Rajiv Perrin DO November 21, 2017 18:05
[2017-11-21] MEDS: HEPARIN SODIUM - SQ 10,000 UNITS/ML VIAL SQ SCH ×2 (18:29→22:27)
[2017-11-21] MEDS: SODIUM CHLORIDE 0.9% FLUSH 10 ML FLUSH IV FLUSH SCH (20:32)
[2017-11-21] MEDS: ASPIRIN EC 81 MG TABEC PO SCH (20:32)
[2017-11-21] MEDS: METOPROLOL TARTRATE 25 MG TAB PO SCH (20:32)
[2017-11-21] MEDS: hydrALAZINE HCL 50 MG TAB PO SCH (22:52)
[2017-11-22] VITALS (8 sets, daily range): BP systolic 115–149; BP diastolic 70–82; PULSE 72–100; RESP 18–28; TEMP 97.3–98; O2SAT 96–99
[2017-11-22] MEDS: hydrALAZINE HCL 50 MG TAB PO SCH ×2 (05:54→14:00)
[2017-11-22] MEDS: HEPARIN SODIUM - SQ 10,000 UNITS/ML VIAL SQ SCH (06:31)
[2017-11-22 06:59] LABS: AUTOMATED NEUTROPHIL # 4.6 TH/MM3 (1.8-7.7); BASOPHIL # 0.1 TH/MM3 (0-0.2); CHLORIDE 103 MEQ/L (98-107); EOSINOPHIL # 0.5 TH/MM3 (0-0.4); EOSINOPHIL % 6.9 % (0.0-4.0); HEMATOCRIT 45.2 % (39.0-51.0); LYMPH % 18.2 % (9.0-44.0); LYMPHOCYTE # 1.3 TH/MM3 (1.0-4.8); MEAN CELL VOLUME 92.5 FL (80.0-100.0); MEAN CORPUSCULAR HEMOGLOBIN 30.6 PG (27.0-34.0); MEAN CORPUSCULAR HGB CONC 33.1 % (32.0-36.0); MEAN PLATELET VOLUME 10.5 FL (7.0-11.0); MONO % 11.1 % (0.0-8.0); MONOCYTE # 0.8 TH/MM3 (0-0.9); NEUT % 62.8 % (16.0-70.0); PLATELET COUNT 209 TH/MM3 (150-450); RED BLOOD COUNT 4.89 MIL/MM3 (4.50-5.90); RED CELL DISTRIBUTION WIDTH 12.8 % (11.6-17.2); SODIUM (NA) 137 MEQ/L (136-145); WHITE BLOOD COUNT 7.3 TH/MM3 (4.0-11.0)
[2017-11-22 07:02] LABS: BICARBONATE 26.5 MEQ/L (21.0-32.0); BLOOD UREA NITROGEN 16 MG/DL (7-18); CALCIUM 8.8 MG/DL (8.5-10.1); GLUCOSE,RANDOM 90 MG/DL (74-106)
[2017-11-22 07:05] LABS: ALT (GPT) 68 U/L (12-78); AST (GOT) 38 U/L (15-37); GLOMERULAR FILTRATION RATE 73 ML/MIN (>89)
[2017-11-22 07:07] LABS: TOTAL BILIRUBIN ADULT 0.6 MG/DL (0.2-1.0)
[2017-11-22 07:08] LABS: ALKALINE PHOSPHATASE 62 U/L (45-117)
[2017-11-22] MEDS: SODIUM CHLORIDE 0.9% FLUSH 10 ML FLUSH IV FLUSH SCH (08:36)
[2017-11-22] MEDS: METOPROLOL TARTRATE 25 MG TAB PO SCH (08:36)
[2017-11-22] MEDS: ASPIRIN EC 81 MG TABEC PO SCH (08:36)
[2017-11-22] MEDS ORDERED: NIFEdipine 60 MG SUSTAINED RELEASE TAB PO SCH (09:00)
--- NOTE | 2017-11-22 10:09 | EKG ---
Date Performed: 11/21/2017 Time Performed: 14:22:57 PTAGE: 72 years EKG: Sinus tachycardia NONSPECIFIC ST & T-WAVE ABNORMALITY ABNORMAL RHYTHM ECG PREVIOUS TRACING : 11/13/2017 20.02 Compared to prior study, rate is faster. Nonspecific ST-T c hanges are now present. DOCTOR: Reid Gatica Interpretating Date/Time 11/22/2017 10:08:22
[2017-11-22] MEDS ORDERED: CLOPIDOGREL 75 MG TAB PO SCH ×2 (10:15→12:00)
--- NOTE | 2017-11-22 10:40 | MB ---
cc: Marcio Young MD DATE: 11/22/2017 REASON FOR CONSULTATION: Probable new onset atrial fibrillation. HISTORY OF PRESENT ILLNESS: The patient is a very pleasant 72-year-old gentleman with a history of renal artery stenosis, status post recent stenting, as well as morbid obesity and hypertension, who presents with palpitations. The patient says at home he noticed his heart pounding and he took his blood pressure and his heart rate was in the 170s. In the Emergency Department, he had a rhythm that initially looked like SVT but with adenosine became more consistent with atrial fibrillation. Eventually, the patient converted on his own to sinus rhythm where he remains. He is now asymptomatic, denying any chest pain, shortness of breath, residual palpitations, lightheadedness, dizziness, syncope. PAST MEDICAL HISTORY: 1. Renal artery stenosis, status post recent stenting. 2. Hypertension. 3. Morbid obesity. CURRENT MEDICATIONS: 1. Procardia 60 mg daily. 2. Apresoline 50 mg q. 8 hours. 3. Lopressor 75 mg q. 12 hours. 4. Aspirin 81 mg daily. The patient was taking Plavix, but this has not been continued in the hospital. ALLERGIES: NO KNOWN DRUG ALLERGIES. PHYSICAL EXAMINATION: VITAL SIGNS: Afebrile, pulse 74, respiratory rate 18, BP 121/74, sating 96 on room air. GENERAL: Pleasant, obese gentleman in no distress. NECK: No JVD. LUNGS: Clear to auscultation bilaterally. HEART: Regular rate and rhythm. No murmurs appreciated. ABDOMEN: Benign. EXTREMITIES: No edema. LABORATORY DATA: Sodium 137, potassium 3.6, chloride 103, bicarbonate 26.5, BUN 16, creatinine 1.0, glucose 90. Cardiac enzymes are negative. TSH is elevated at 6.08. INR is 1.1. White count 7.3, hematocrit 45.2, platelets 209. Initial EKG shows a regular narrow complex tachycardia consistent with supraventricular tachycardia or an atrial tachycardia/flutter. The adenosine strips show his heart rate briefly decreasing and the underlying atrial rhythm appears to be a fine flutter before the heart rate resumed its original speed. Telemetry shows sinus rhythm. IMPRESSION: 1. Tachyarrhythmia. After reviewing the patient's multiple EKGs and his history, I believe his rhythm is most consistent with a fine atrial flutter. It did not break with Adenosine. There does appear to be some flutter wave activity in the brief pauses caused by the adenosine administration. Because of his risk factors including age, vascular disease and hypertension, his CHADS-VASc score is high enough that he would require full anticoagulation. I discussed the risks and benefits of his choices and he chooses warfarin due to financial reasons. I will initiate this and will also restart his Plavix, which was recommended for 6 months given his recent renal artery stenting. I will discontinue his aspirin. It is unclear what his long-term burden is and as an outpatient I may opt to perform either a long-term monitor or loop recorder to get a better sense. Given he is in normal sinus rhythm and asymptomatic currently, he could be discharged home to followup in my office. Thank you again for the opportunity to participate in this patient's care. MD ZULEIMA Mckeon/ERNESTO , 09:59 AM , 10:40 AM
[2017-11-22 12:09] LABS: INTERNATIONAL NORMALIZED RATIO 1.1 RATIO; PROTHROMBIN TIME - PATIENT 11.1 SEC (9.8-11.6)
[2017-11-22] MEDS ORDERED: DILT240C44 PO (14:24)
[2017-11-22] MEDS ORDERED: XARE15TA PO (14:24)
[2017-11-22] MEDS ORDERED: PLAV75TA29 PO (14:24)
--- NOTE | 2017-11-22 14:25 | HHI.DCPOC ---
Discharge Care Plan Diagnosis: (1) Atrial flutter (2) Renal artery stenosis (3) Hypertension Goals to Promote Your Health * To prevent worsening of your condition and complications * To maintain your health at the optimal level Directions to Meet Your Goals Take your medications as prescribed Follow your dietary instruction Follow activity as directed Keep your appointments as scheduled Take your immunizations and boosters as scheduled If your symptoms worsen call your PCP, if no PCP go to Urgent Care Center or Emergency Room Smoking is Dangerous to Your Health. Avoid second hand smoke Call the 24-hour hour crisis hotline for domestic abuse at Rajiv Perrin DO November 22, 2017 14:25
--- NOTE | 2017-11-22 14:34 | HHI.PR ---
Subjective Remarks The pt was feeling well and looking forward to going home. He said at first he wanted Coumadin but decided he didn't want to do the associated fingersticks. He would like to try Xarelto. Discussed with nursing and case management. Objective Vitals Vital Signs Date Time Temp Pulse Resp B/P (MAP) Pulse Ox O2 Delivery O2 Flow Rate FiO2 11/22/17 12:00 72 11/22/17 12:00 98.0 74 24 139/72 (94) 99 11/22/17 10:00 78 11/22/17 09:00 100 11/22/17 09:00 82 21 115/70 (85) 97 11/22/17 08:00 97.6 88 28 149/79 (102) 97 11/22/17 07:00 84 11/22/17 04:00 97.5 74 18 121/74 (90) 96 11/22/17 00:00 97.3 76 24 129/82 (98) 96 11/21/17 23:15 74 11/21/17 20:00 96 21 11/21/17 20:00 94 21 144/83 (103) 96 11/21/17 19:00 96 13 11/21/17 18:15 104 11/21/17 18:15 98.7 104 18 129/87 (101) 11/21/17 18:02 11/21/17 17:29 116 18 123/72 (89) 95 Room Air 11/21/17 16:30 152 18 140/86 (104) 96 Room Air 11/21/17 15:33 122 18 118/68 (85) 98 Room Air 11/21/17 15:00 119 136/85 (102) 97 Room Air I/O 11/21/17 11/21/17 11/21/17 11/22/17 11/22/17 11/22/17 07:00 15:00 23:00 07:00 15:00 23:00 Output Total 0 ml 700 ml Balance 0 ml -700 ml Output Urine Total 0 ml 700 ml Result Diagram: 11/22/17 0517 11/22/17 0517 Imaging Last Impressions Chest X-Ray 11/21/17 0000 Signed Impressions: Service Date/Time: Tuesday, November 21, 2017 14:42 - CONCLUSION: No acute cardiopulmonary disease identified. Praneeth Patrick MD Objective Remarks GENERAL: Well-nourished, well-developed patient in no acute distress. SKIN: Focused skin assessment reveals no rash and nodules. Skin is Warm and dry. HEAD: Atraumatic. Normocephalic. EYES: Pupils equal and round. No scleral icterus. No injection or drainage. ENT: No nasal bleeding or discharge. Mucous membranes pink and moist. NECK: Trachea midline. No JVD. CARDIOVASCULAR: Regular rate and rhythm. RESPIRATORY: No accessory muscle use. Clear to auscultation. Breath sounds equal bilaterally. GASTROINTESTINAL: Abdomen soft, non-tender, nondistended. Hepatic and splenic margins not palpable. MUSCULOSKELETAL: No obvious deformities. No clubbing. No cyanosis. No edema. NEUROLOGICAL: Awake and alert. No obvious cranial nerve deficits. Motor grossly within normal limits. Normal speech. PSYCHIATRIC: Appropriate mood and affect; insight and judgment normal. A/P Assessment and Plan Atrial flutter with RVR New onset. The patient initially required adenosine in the emergency department. Cardiology consult appreciated. - Cardizem added. Continue Lopressor. - Check an echocardiogram. - Coumadin recommended, but pt did not want to pursue fingersticks. Will d/c on Xarelto. - follow up with Cardiology. - telemetry. Renal insufficiency Possibly secondary to hypertension or blood pressure medications. Resolved. - resume losartan. - IV fluids. - Follow BMP and avoid nephrotoxic agents. Hypertension Secondary to renal artery stenosis. - Continue home medications including Plavix. - Clonidine as needed. Gout The pt does not want to be on allopurinol anymore. - hold allopurinol. Hyponatremia Na borderline low. Resolved with IVFs. - monitor BMP. PPx: Heparin Discharge Planning D/c home with cardiology follow-up Discharge time spent > 30 minutes Rajiv Perrin DO November 22, 2017 14:34
[2017-11-22] MEDS ORDERED: WARFARIN SOD 5 MG TAB PO SCH (16:00)
[2017-11-22 21:02] LABS: HEMOGLOBIN A1C 5.7 % (4.3-6.0)
[2017-11-23] MEDS ORDERED: DILTIAZEM-CD 240 MG CAP ER PO SCH (09:00)
== END 2017-11-22 15:35 | disposition home or self-care (01) | DRG 309 ==
LOC: PHED 14:02 → PHEDA 17:34 → PHICU 18:14
PROVIDERS: ADMIT Hospitalist; ATTEND Hospitalist
DX: I48.92 Unspecified atrial flutter (principal); E87.1 Hypo-osmolality and hyponatremia; I10 Essential (primary) hypertension; I70.1 Atherosclerosis of renal artery; E66.01 Morbid (severe) obesity due to excess calories; M10.9 Gout, unspecified; I49.3 Ventricular premature depolarization; I25.10 Atherosclerotic heart disease of native coronary artery without angina pectoris; N28.9 Disorder of kidney and ureter, unspecified; M19.90 Unspecified osteoarthritis, unspecified site; Z82.49 Family history of ischemic heart disease and other diseases of the circulatory system
CPT/HCPCS: 71045; 80048; 80053; 82550; 83036; 84443; 84484; 85025; 85610; 93005; 96374; 96375; J0153; J1644; J7030

== ENCOUNTER 2017-11-25 14:02 | Day surgery (SDC) | payer OTHER ==
[~2017-11-25 14:02] MED LIST changes: -BLOOD PRESSURE1 M20; +DILT240C44 PO; -NIFE60TA8 PO; +PLAV75TA29 PO; +XARE15TA PO
[2017-11-25 14:44] VITALS: BP 143/58; PULSE 74; RESP 20; TEMP 97.9; O2SAT 95
--- NOTE | 2017-11-25 17:23 | RADRPT ---
EXAM DATE/TIME: 11/25/2017 14:46 [facility] COMPARISON : No previous studies available for comparison. INDICATIONS : F/U Renal sent placement OBJECTIVE: Temperature: 97.9 Heart Rate: 74 Blood Pressure: 143/58 Respiratory: 20 Oximetry: 95 PNEUMONIA VACCINE: HISTORY OF PRESENT ILLNESS: 72-year-old male postop day #10 status post left renal artery stent placement for recurrent life thre atening hypertensive emergencies. His blood pressure is now well controlled with systolics in the 140 s and he is without complaints. ALLERGIES: 1. NKDA MEDICATIONS: 1. Plavix (Clopidogrel Bisulfate) 75 mg q.d. 2. xarelto 15 mg q.h.s. 3. diltiazem 240 mg q.d. 4. hydralazine 50 mg t.i.d. 5. cozaar 100 mg q.d. 6. Lopressor (Metroprolol)50 mg b.i.d. ASSESSMENT: Uneventful postoperative course following left renal artery stent placement with controlled significa nt improved blood pressure. Patient has recently been placed on Xarelto by cardiology. Therefore will discontinue Plavix and initiate low-dose aspirin treatment. Otherwise, patient scheduled to followup with cardiology and his primary care physician. TIME SPENT: 15 minutes. Adithya Leon MD on November 25, 2017 at 16:45 Board Certified Radiologist. This report was verified electronically.
== END 2017-11-25 15:03 | disposition home or self-care (01) ==
LOC: HROP 14:02 → HRIP 14:03 → HROP 15:03
PROVIDERS: ATTEND Radiology Diagnostic Radiology
DX: Z09 Encounter for follow-up examination after completed treatment for conditions other than malignant neoplasm (principal)